=== PATIENT | male | born 1950 | race Caucasian/White ===

== ENCOUNTER 2016-05-04 05:06 | Inpatient (IN) | payer OTHER ==
[2016-03-29 09:34] VITALS: BMI 37.0
--- NOTE | 2016-04-22 17:30 | HISTORY & PHYSICAL EXAMINATION ---
DATE OF ADMISSION: 05/04/2016 CHIEF COMPLAINT: Right knee pain. HISTORY OF PRESENT ILLNESS: 66-year-old gentleman who is now almost a year out from a left knee replacement. He has done well from this side. He is a very avid golfer and now become much more limited by his right knee pain. His left knee is doing well. He has got limited walking tolerance. He has got pain with every step. The more he walks, the more he limps. He would like to have this fixed over the winter months before golf starts. Of note, patient does have multiple comorbidities and recently had a cardiac pacemaker placed. He has been seen by the applied statistician and cleared for surgery. PAST MEDICAL HISTORY: 1. Hypertension. 2. Elevated cholesterol. 3. Hypertrophic cardiomyopathy. 4. Sleep apnea with CPAP machine. 5. Low back pain. 6. Obesity with a BMI of 38. 7. Hiatal hernia. PAST SURGICAL HISTORY: Include knee replacement done 05/09/2015. Right knee scope 2001. ALLERGIES: ATENOLOL. CURRENT MEDICINES: 1. Androderm 2 mg every 24 hours once a day. 2. Niaspan 750 mg 2 pills a day. 3. Nasonex nasal drops p.r.n. 4. Allopurinol 300 mg a day. 5. Lisinopril 10 mg a day. 6. Zetia 10 mg a day. 7. Verapamil ER 180 mg a day. 8. Lovaza 4 capsules a day. 9. Aspirin 81 mg. 10. Aleve p.r.n. SOCIAL HISTORY: A 66-year-old gentleman. Very avid golfer. He is retired. Does not smoke. FAMILY HISTORY: Noncontributory. REVIEW OF SYSTEMS: Negative for diabetes, neurologic problems, vascular problems, bleeding disorders. Denies any chest pain, no shortness of breath. No history of DVT or PE. PHYSICAL EXAMINATION: GENERAL: A pleasant, middle-aged male. He looks to be in pretty decent health. HEENT: Benign. NECK: Supple. No lymphadenopathy. LUNGS: Clear to auscultation. HEART: Regular rate and rhythm. ABDOMEN: Soft, nontender, nondistended. EXTREMITIES: Grossly neurovascularly intact except as follows: Examination of the right knee reveals the patient to have a valgus alignment to his knee. He goes into further valgus with weight bearing. Range of motion about 10 degrees short of full extension to 110 degrees of flexion. No instability. No pain with hip motion. Examination of the left knee reveals a well-healed incision. Minimal swelling. Range of motion is 10 to about 115. X-RAYS: X-rays of the right knee reviewed. It shows advanced right knee DJD. He has got complete loss of his lateral joint space. He has got subchondral sclerosis. He has got multiple osteophytes in all 3 compartments. ASSESSMENT: A 66-year-old gentleman just about a year out from left knee replacement with advanced right knee degenerative joint disease. He has failed conservative treatment and it is really limiting his activities. He does have a significant flexion contracture. PLAN: We are going to take him to the operating room and do a right total knee replacement. The risks and benefits of this procedure were explained to the patient including but not limited to DVT, PE, , infection, neurological injury, vascular injury, bleeding problem, pain, limited range of motion, failure to relive symptoms, incomplete relief of symptoms, need for further surgery in the future, fracture, leg length inequality, nerve palsy, etc. The patient understands and desires to proceed. Informed consent was obtained. Of note, the patient did recently have a cardiac pacemaker placed within the past month but is felt to be cleared for surgery. We did talk about holding his lisinopril the day of surgery and Aleve 10 days preoperatively and will work hard to fix his flexion contracture. He is planning to be discharged to home using [facility] home health model. I will see him back 2 weeks postop. KEVIN
[~2016-05-04] VITALS: Ht 175.3 cm; Wt 116.3 kg
[2016-05-04] VITALS (11 sets, daily range): BP systolic 117–164; BP diastolic 72–88; PULSE 59–75; TEMP 36.4–36.6; O2SAT 91–96; Ht 175.3 cm; Wt 116.3 kg
[~2016-05-04 05:06] MED LIST: ALL300 PO; ASPI81TA28 PO; EZET10TA63 PO; LISI10TA PO; MOME50SP5; NIAC1TAB54 PO; OMEG10007 PO; VERA180T PO
[2016-05-04] MEDS ORDERED: LACTATED RINGER'S 1000ML IV SCH (06:00)
[2016-05-04] MEDS ORDERED: SCOPOLAMINE 1.5 MG TDSY TD SCH (06:00)
[2016-05-04] MEDS ORDERED: GABAPENTIN 300 MG CAP PO SCH (06:00)
[2016-05-04] MEDS ORDERED: METOCLOPRAMIDE HCL 10 MG TAB PO SCH (06:00)
[2016-05-04] MEDS ORDERED: ACETAMINOPHEN 500 MG TAB PO SCH (06:00)
[2016-05-04] MEDS ORDERED: FAMOTIDINE 20 MG TAB PO SCH (06:00)
[2016-05-04] MEDS ORDERED: CEFAZOLIN 2000 MG/60 ML D5W 60 ML IV SCH (06:00)
[2016-05-04] MEDS ORDERED: BUPIVACAINE LIPOSOME 266 MG, BUPIVACAINE/EPINEPHRINE INJ 50 ML, SODIUM CHLORIDE 0.9% PF... INFIL SCH ×3 (06:00)
[2016-05-04] MEDS ORDERED: TRANEXAMIC ACID INJ 1,000 MG in SODIUM CHLORIDE 0.9% 100ML 100 ML IV SCH ×2 (06:00→15:00)
[2016-05-04] MEDS ORDERED: BUPIVACAINE 0.5 % 5 MG/1 ML PF 10ML VIAL ONE (06:28)
[2016-05-04] MEDS ORDERED: BUPIVACAINE 0.25% 30 ML VIAL ONE (06:28)
[2016-05-04] MEDS ORDERED: MIDAZOLAM HCL 1 MG/ML 2ML VIAL ONE (06:36)
[2016-05-04] MEDS ORDERED: FENTANYL CITRATE INJ 50 MCG/1 ML 2 ML VIAL ONE ×3 (06:37→08:43)
[2016-05-04] MEDS ORDERED: BUPIVACAINE LIPOSOME 1/3% 266 MG/20 ML VIAL INFIL ONE (06:46)
--- NOTE | 2016-05-04 06:49 | History & Physical Bridge Note ---
H&P Re-Evaluation Bridge Note: I have examined the patient, reviewed the History & Physical and in the interval since the performance of the History & Physical I have noted the following changes of clinical significance: No changes noted
[2016-05-04] MEDS ORDERED: BACITRACIN 50000 UNIT VIAL IR ONE (07:54)
[2016-05-04] MEDS ORDERED: PROPOFOL IV EMULSION 10 MG/ML 20 ML VIAL IV ONE (07:56)
[2016-05-04] MEDS ORDERED: NEOSTIGMINE METHYLSULFATE 5 MG/5 ML SYR ONE (07:56)
[2016-05-04] MEDS ORDERED: LIDOCAINE HCL 2% 2 ML VIAL (20MG/ML) ONE (07:56)
[2016-05-04] MEDS ORDERED: ETOMIDATE 2 MG/ML 20 ML VIAL IV ONE (07:56)
[2016-05-04] MEDS ORDERED: ONDANSETRON INJ 2 MG/ML 2 ML VIAL ONE (07:56)
[2016-05-04] MEDS ORDERED: SUCCINYLCHOLINE CHLORIDE 20 MG/ML 10 ML VIAL IV ONE (07:56)
[2016-05-04] MEDS ORDERED: ROCURONIUM BROMIDE 10 MG/ML 5 ML VIAL ONE (07:56)
[2016-05-04] MEDS ORDERED: GLYCOPYRROLATE INJ 0.2 MG/ML VIAL ONE (07:57)
[2016-05-04] MEDS ORDERED: ESMOLOL HCL 10 MG/ML 10 ML VIAL ONE (07:57)
[2016-05-04] MEDS ORDERED: DEXAMETHASONE SOD INJ 4 MG/ML VIAL ONE (08:22)
--- NOTE | 2016-05-04 08:49 | [facility] Post Operative Brief Note ---
Immediate Operative Summary Operative Date May 04, 2016. Pre-Operative Diagnosis Right knee degenerative joint disease Chronic Prepatella Bursitis Post-Operative Diagnosis SAME Procedure(s) Performed Right total knee arthroplasty Excision Prepatella Bursa Surgeon Dr. Luiz Gupta Textile Conversion Manager Surgeon(s) Tobias Kirby PA-C Estimated Blood Loss 50cc Findings Severe DJD + Chronic Small Bursitis Fluids (cc crystalloids) 1400 cc Specimens A. Right knee bone and tissue Drains None Anesthesia General Complication(s) None Disposition Recovery Room / PACU
[2016-05-04] MEDS ORDERED: MoRPHine SULFATE 2 MG/ML CARP IV PRN (09:00)
[2016-05-04] MEDS ORDERED: ONDANSETRON INJ 2 MG/ML 2 ML VIAL IV PRN ×2 (09:00→09:15)
[2016-05-04] MEDS ORDERED: SILVER SULFADIAZINE 1% CR 50 GM JAR EXT PRN (09:00)
[2016-05-04] MEDS ORDERED: ALUMINUM/MAGNESIUM/SIMETH (MAALOX MAX) 30 ML UDC PO PRN (09:00)
[2016-05-04] MEDS ORDERED: METOCLOPRAMIDE HCL INJ 5 MG/ML 2 ML VIAL IV PRN (09:00)
[2016-05-04] MEDS ORDERED: ZOLPIDEM TARTRATE 5 MG TAB PO PRN (09:00)
[2016-05-04] MEDS ORDERED: DiphenhydrAMINE HCL 50 MG/ML VIAL IV PRN (09:00)
[2016-05-04] MEDS ORDERED: TAMSULOSIN HCL 0.4 MG CAP PO PRN (09:00)
[2016-05-04] MEDS ORDERED: BISACODYL 10 MG SUPP PR PRN (09:00)
[2016-05-04] MEDS ORDERED: ATROPINE SULFATE 0.1 MG/ML 5ML SYR IV PRN (09:15)
[2016-05-04] MEDS ORDERED: PROMETHAZINE HCL INJ 12.5 MG in SODIUM CHLORIDE 0.9% 50ML 50 ML IV PRN (09:15)
[2016-05-04] MEDS ORDERED: NALOXONE HCL 0.4 MG/1 ML VIAL/CARP IV PRN (09:15)
[2016-05-04] MEDS ORDERED: FLUMAZENIL 0.1 MG/1 ML 10 ML VIAL IV PRN (09:15)
[2016-05-04] MEDS ORDERED: EpHEDrine SULFATE INJ 50 MG/ML AMP IV PRN (09:15)
[2016-05-04] MEDS ORDERED: LABETALOL HCL IV 5 MG/ML 20ML IV PRN (09:15)
[2016-05-04] MEDS ORDERED: HYDROmorphone INJ 1 MG/ML SYR IV PRN (09:15)
--- NOTE | 2016-05-04 09:34 | Anesthesiology Progress Note ---
Anesthesia Post Op Note Date & Time May 04, 2016 at 09:33 Vital Signs Pain Intensity: 0 Vital Signs Past 12 Hours Date Time Temp Pulse Resp B/P Pulse Ox O2 Delivery O2 Flow Rate FiO2 05/04/16 09:23 76 14 05/04/16 09:23 76 14 122/74 95 05/04/16 09:18 74 15 131/83 98 05/04/16 09:18 74 15 05/04/16 09:13 63 16 05/04/16 09:13 73 16 138/79 99 05/04/16 09:08 70 11 129/74 99 05/04/16 09:08 69 14 129/74 100 Mask 10 05/04/16 09:08 71 11 05/04/16 09:03 70 17 05/04/16 09:03 74 17 134/75 98 05/04/16 08:58 37.3 84 14 149/79 96 Mask 10 05/04/16 08:58 70 23 05/04/16 08:58 78 23 145/76 98 05/04/16 06:11 95 Room Air 05/04/16 06:08 36.6 73 18 125/84 Notes Mental Status: alert / awake / arousable, participated in evaluation Pt Amnestic to Procedure: Yes Nausea / Vomiting: adequately controlled Pain: adequately controlled Airway Patency, RR, SpO2: stable & adequate BP & HR: stable & adequate Hydration State: stable & adequate Anesthetic Complications: no major complications apparent
--- NOTE | 2016-05-04 09:34 | OPERATIVE REPORT ---
DATE OF OPERATION: 05/04/2016 SURGEON: Dr. Luiz Gupta. SAILING MASTER: STAN Inman. PREOPERATIVE DIAGNOSIS: 1. Right knee degenerative joint disease. 2. Right chronic prepatellar bursitis. POSTOPERATIVE DIAGNOSIS: Same. PROCEDURE PERFORMED: 1. Right cemented posterior stabilized total knee arthroplasty. 2. Excision of right chronic small prepatellar bursitis. COMPLICATIONS: None. ESTIMATED BLOOD LOSS: 50 mL. FLUID REPLACEMENT: 1400 mL crystalloid fluid replacement. ANESTHESIA: General. SPECIMENS: Right knee sent for pathology. TOURNIQUET TIME: 59 minutes at 300 mmHg. OPERATIVE INDICATIONS: The patient is a 66-year-old very active gentleman and an avid golfer, who has had a long history of bilateral knee pain and degenerative joint disease. He has been through extensive conservative care. He underwent a left knee replacement a year ago and has done well from that. He has become more and more limited by his right knee pain. He has got tricompartment disease and has failed conservative care. He elected to proceed with operative treatment. He had a very stiff knee as well with a flexion contracture of 10-15 degrees. OPERATIVE FINDINGS: Operative findings reveal valgus aligned knee. He had a very stiff knee with the range of motion of about 15-90. He had advanced tricompartmental DJD, most severe in the lateral side, but grade IV changes throughout. OPERATIVE IMPLANTS: Operative implants consisted of: 1. Biomet Vanguard size 70 right posterior stabilized femoral component. 2. Biomet size 79 tibial tray. 3. A 12 mm posterior stabilized polyethylene insert. 4. A 34 x 8.5 all poly patella. OPERATIVE PROCEDURE: The patient was taken to the operating room, identified and placed on the operating room table in a supine position. All contact areas were appropriately padded. IV antibiotics were provided by the anesthesia team. A general anesthetic was implemented. A right thigh tourniquet was then placed and the right lower extremity was then prepped and draped in the usual sterile fashion. The right leg was elevated and exsanguinated with Esmarch and tourniquet was placed at 300 mmHg. An anterior approach to the right knee was then performed through a longitudinal incision centered over the patella. I did make this just medial to his prepatellar bursa area which was about 2 cm, but very small but chronic. His bursa was over a fairly prominent area of his inferior pole of the patella. Sharp dissection was carried out through the subcutaneous tissues. Full thickness flaps were elevated. I then excised the chronic prepatellar bursa area trying to make sure I left plenty of thickness of skin for vascular flow to the skin. I ended up leaving a little bit of the thickened area, as I did not feel it was safe to excise it completely, as I would compromise the skin. This was not sent for pathology. It was a chronic bursitis and no need for pathological examination. A medial parapatellar arthrotomy incision was made. Some subperiosteal dissection was carried out medially. The fat pad was resected from beneath the patellar tendon. The lateral patellofemoral ligament was released. The patella was everted and the knee was flexed. The osteophytes were taken off the distal femur. The ACL and PCL were then released from the distal femur and the tibia subluxated anteriorly. The external tibial alignment jig was then placed in the anterior face of the tibia and adjusted about 14 mm medially. A proximal tibial cut was made to remove about 4 mm of bone from the medial side. I took a fairly large piece, as he had a significant flexion contracture and I wanted to make sure we could fix this. The tibia was then sized to a size 79. Attention was then drawn to the femur. The distal femur was entered with a sharp drill. The intramedullary canal was suctioned. A right 5 degree valgus cutting guide was placed and the distal femoral cutting block was pinned in place. Distal femoral cut was made to take an additional 5 mm of bone off the distal femur due to do this flexion contracture and desire to fix this. The knee was brought out into extension. I did release the IT band and posterolateral capsule to equalize the extension gap. Great care was taken throughout the procedure to protect the peroneal nerve at all times. The knee was then flexed. The femur was then sized to a size 70. The AP cutting block was pinned parallel to the epicondylar axis, which was 5 degrees of external rotation. The anterior cut, anterior chamfer cut and posterior cut, and posterior chamfer cuts were made. Box cutting guide was placed and adjusted slightly lateral and the box cut was made. The knee was flexed. The remnants of the medial and lateral menisci were excised. The osteophytes were taken off the posterior aspect of the femur. I did release the popliteus tendon in order to equalize the flexion gaps. The knee was then trialed. The femoral component was then placed. The tibial tray was pinned in maximum external rotation and drill and stem punch were used to create defect in proximal tibia for the tibial tray. The knee was then trialed and the 12 mm insert fit most appropriately. Attention was then drawn to the patella. The patella was cleaned of all soft tissues. Patella thickness measured 23 mm in thickness and was cut down to 14. It was sized to a size 34 patella. Lug holes were drilled for a 34 patella. The lateral osteophyte was removed. Patella button was placed. The knee was taken through range of motion and the patella tracked nicely with no thumbs test. Attention was then drawn toward placement of the permanent components. All trial components were removed. The knee was irrigated with copious amounts of pulsatile lavage solution. A bone plug was placed in the distal femur to limit blood loss. A double batch of Palacos G cement was mixed. A right size 70 posterior stabilized femoral component, size 79 tibial tray, 12 mm posterior stabilized polyethylene insert, and a 34 x 8.5 all poly patella were then cemented in place. The knee was brought out into full extension until the cement had hardened. When placing the polyethylene, the clip did not really snap like it normally did, so we wait until the cement hardened. A final cement check was then performed. I then removed the locking pin and replaced it with an entire new pin which locked into position with a standard snap. The knee was taken through range of motion and everything tracked appropriately. Everything was well fixed and stable. The patella tracked well with no thumbs test. Attention was then drawn toward closing. The wound was irrigated with copious amounts of normal saline. I injected locally with a total of 100 mL of a combination of 20 mL of Exparel, 30 mL of normal saline, 50 mL of 0.25% Marcaine with epinephrine. The patient did receive 1 gram of tranexamic acid. The tourniquet was then let down for a tourniquet time of 59 minutes. Hemostasis was assured with use of electrocautery. The wound was once again irrigated. The extensor mechanism was then closed with a combination of #1 PDS suture and #1 Vicryl suture in a [id number] fashion. Extensor mechanism was checked and found to be intact. The subcutaneous tissues were then closed with 2-0 Dexon suture in a buried interrupted fashion. Skin was closed skin zafar. The leg was then cleaned and dried and a sterile dressing composed of Xeroform, 4 x 4, sterile cast padding and Andrew bandage were applied. The patient then brought out of general anesthesia and transferred to the recovery room in stable condition. The patient tolerated the procedure well with no complications. All needle and sponge counts were correct at the end of the operation. I attest to the content of the Intraoperative Record and any orders documented therein. Any exceptio ns are noted below.
--- NOTE | 2016-05-04 09:49 | DIAGNOSTIC IMAGING REPORT ---
TWO VIEWS RIGHT KNEE CLINICAL HISTORY: Postoperative examination. FINDINGS: AP and crosstable lateral portable views of the right knee are obtained. A right knee arthroplasty is in near anatomic alignment. There has been undersurface remodeling of the patella. No acute fracture is seen. There are expected postoperative changes around the knee including skin clips, a surgical drain, soft tissue edema, and subcutaneous gas. IMPRESSION: Expected postoperative changes status post right knee arthroplasty. No acute fracture is seen. Electronically signed by: Daryl Parry M.D. 05/04/2016 9:48 AM Dictated Date/Time: 05/04/2016 9:47 AM
[2016-05-04] MEDS: D5W AND 1/2NSS + 20MEQ KCL 1,000 ML IV SCH ×2 (10:53→16:25)
[2016-05-04] MEDS ORDERED: KETOROLAC TROMETHAMINE 30 MG/ML VIAL IV. SCH ×2 (12:00)
[2016-05-04] MEDS: FERROUS GLUCONATE 324 MG TAB PO SCH ×2 (12:34→17:31)
[2016-05-04] MEDS: LISINOPRIL 10 MG TAB PO SCH (12:34)
[2016-05-04] MEDS: MULTIVITAMIN TAB PO SCH (12:35)
[2016-05-04] MEDS: PANTOprazole SOD 40 MG TAB PO SCH (12:35)
[2016-05-04] MEDS: KETOROLAC TROMETHAMINE 15 MG/ML VIAL IV. SCH ×3 (12:36→23:50)
[2016-05-04] MEDS: CEFAZOLIN IV 2,000 MG in DEXTROSE 5% 50ML 50 ML IV SCH ×2 (13:40→22:05)
[2016-05-04] MEDS: ACETAMINOPHEN 500 MG TAB PO SCH ×2 (13:40→22:05)
--- NOTE | 2016-05-04 15:36 | CARDIOLOGY CONSULTATION ---
DATE OF CONSULTATION: 05/04/2016 REFERRING PHYSICIAN: Dr. Gupta. REASON FOR CONSULTATION: Postop cardiac care. HISTORY OF PRESENT ILLNESS: The patient is a 66-year-old male who is usually followed by Dr. Eduardo through the [facility]. He has a history of hypertrophic obstructive cardiomyopathy, hypertension, sleep apnea, and recently received a dual-chamber ICD with a history of ventricular ectopy and Bivesicular heart block. The patient underwent a right total knee replacement today. The procedure was noncomplicated and the patient is fully awake and has already finished lunch. He has no complaints today. ALLERGIES: ATENOLOL. PAST MEDICAL HISTORY: As outlined above, the patient has a history of hypertrophic obstructive cardiomyopathy. He received a dual-chamber ICD in March of last year. He has been treated for hypertension, dyslipidemia and sleep apnea. SOCIAL HISTORY: He is a nonsmoker. FAMILY MEDICAL HISTORY: Noncontributory. REVIEW OF SYSTEMS: A 10-point review of systems is negative except for the history of chief complaint. PHYSICAL EXAMINATION: GENERAL: He is alert and oriented in no acute distress. VITAL SIGNS: Blood pressure is 130/80 and pulse is regular at 70 beats per minute. He is afebrile. HEENT: Normocephalic. Pupils are equal and reactive to light. Extraocular muscles are intact bilaterally. NECK: The neck veins are flat. Carotids have good upstrokes bilaterally without bruits. Thyroid is nonpalpable. RESPIRATORY: Breath sounds equal bilaterally and clear to auscultation. CARDIOVASCULAR: Heart has a regular rhythm. There is a systolic murmur along the left sternal border. No S3 or S4. GASTROINTESTINAL: Abdomen is soft and nontender without organomegaly. EXTREMITIES: Free of edema, digit clubbing, or cyanosis. NEUROLOGIC: Grossly intact. SKIN: Warm to touch. LYMPH NODES: Negative to palpation. IMPRESSION: 1. Status post right total knee replacement. 2. Hypertrophic cardiomyopathy with outflow tract obstruction. 3. Status post dual-chamber ICD. 4. Hypertension. 5. Dyslipidemia. 6. Sleep apnea. RECOMMENDATIONS: We will follow along with you during his hospital stay. We want to make sure that he is on his home medications and that he does not become volume overloaded with IV fluid. Otherwise, he is doing well.
[2016-05-04] MEDS: CHECK SCOPOLAMINE PATCH PLACEMENT SCH ×2 (16:25→23:50)
[2016-05-04] MEDS: VERAPAMIL HCL 180 MG TABCR PO SCH (21:00)
[2016-05-04] MEDS: TAPENTADOL ER 50 MG TABCR PO SCH (21:00)
[2016-05-04] MEDS: FLUTICASONE PROPIONATE NA SPR 16 GM BTL SCH (21:00)
[2016-05-04] MEDS: ALLOPURINOL 300 MG TAB PO SCH (21:01)
[2016-05-04] MEDS: ASPIRIN 325 MG ECTAB PO SCH (21:01)
[2016-05-04] MEDS: NIASPAN 500 MG TABCR PO SCH (21:01)
[2016-05-04] MEDS: EZETIMIBE 10MG TAB PO SCH (21:02)
[2016-05-04] MEDS: DOCUSATE SODIUM 100 MG CAP PO SCH (21:02)
[2016-05-05 03:46] VITALS: BP 113/73; PULSE 81; TEMP 36.6; O2SAT 95
[2016-05-05] MEDS: KETOROLAC TROMETHAMINE 15 MG/ML VIAL IV. SCH ×4 (05:59→23:27)
[2016-05-05] MEDS: ACETAMINOPHEN 500 MG TAB PO SCH ×3 (05:59→22:11)
[2016-05-05 06:28] LABS: HEMATOCRIT 38.2 % (42-52); MEAN CELL VOLUME 88.8 fL (80-100); MEAN CORPUSCULAR HEMOGLOBIN 31.6 pg (25-34); MEAN CORPUSCULAR HGB CONC 35.6 g/dl (32-36); MEAN PLATELET VOLUME 9.5 fL (7.4-10.4); PLATELET COUNT 175 K/uL (130-400); WHITE BLOOD COUNT 11.28 K/uL (4.8-10.8)
[2016-05-05 06:55] LABS: CALCIUM 9.1 mg/dl (8.5-10.1); CREATININE 1.4 mg/dl (0.60-1.40); POTASSIUM 4.5 mmol/L (3.5-5.1)
[2016-05-05] MEDS: CHECK SCOPOLAMINE PATCH PLACEMENT SCH ×3 (07:29→23:26)
[2016-05-05 07:30] VITALS: BP 106/70; PULSE 78; TEMP 36.5; O2SAT 91
[2016-05-05] MEDS: MULTIVITAMIN TAB PO SCH (08:21)
[2016-05-05] MEDS: DOCUSATE SODIUM 100 MG CAP PO SCH ×2 (08:21→21:03)
[2016-05-05] MEDS: ASPIRIN 325 MG ECTAB PO SCH ×2 (08:21→21:03)
[2016-05-05] MEDS: FERROUS GLUCONATE 324 MG TAB PO SCH ×3 (08:21→18:01)
[2016-05-05] MEDS: PANTOprazole SOD 40 MG TAB PO SCH (08:21)
[2016-05-05] MEDS: LISINOPRIL 10 MG TAB PO SCH (08:22)
[2016-05-05] MEDS: TAPENTADOL ER 50 MG TABCR PO SCH ×2 (08:24→21:02)
--- NOTE | 2016-05-05 10:35 | Anesthesiology Progress Note ---
Anesthesia Post Op Note Date & Time May 05, 2016 at 10:34 Vital Signs Pain Intensity: 0.0 Vital Signs Past 12 Hours Date Time Temp Pulse Resp B/P Pulse Ox O2 Delivery O2 Flow Rate FiO2 05/05/16 07:30 36.5 78 16 106/70 91 Room Air 05/05/16 07:15 Room Air 05/05/16 03:46 36.6 81 18 113/73 95 CPAP 05/04/16 23:50 Room Air 05/04/16 22:51 36.6 69 20 119/76 93 Room Air Notes Mental Status: alert / awake / arousable, participated in evaluation Pt Amnestic to Procedure: Yes Nausea / Vomiting: adequately controlled Pain: adequately controlled Airway Patency, RR, SpO2: stable & adequate BP & HR: stable & adequate Hydration State: stable & adequate Anesthetic Complications: no major complications apparent
[2016-05-05 10:59] VITALS: BP 105/65; PULSE 68; TEMP 36.9; O2SAT 95
--- NOTE | 2016-05-05 11:12 | PROGRESS NOTE ---
DATE: 05/05/2016 FOLLOWUP VISIT SUBJECTIVE: The patient is a 66-year-old male patient with a history of hypertrophic cardiomyopathy and ICD implant who underwent a total knee replacement yesterday. The patient is sitting in the chair and has no complaints. Physical therapy and rehabilitation are progressing along. He has no complaints today. OBJECTIVE: VITAL SIGNS: Blood pressure is 110/70, pulse is regular at 80. He is afebrile. GENERAL: He is alert and oriented in no acute distress. HEENT: Normocephalic. Pupils are equal and reactive to light. Extraocular muscles are intact bilaterally. NECK: The neck veins are flat. Carotids have good upstrokes bilaterally without bruits. Thyroid is nonpalpable. RESPIRATORY: Breath sounds equal bilaterally and clear to auscultation. CARDIOVASCULAR: Heart has a regular rhythm. Normal S1, S2. No S3, S4. No cardiac rubs or murmurs. GASTROINTESTINAL: Abdomen is soft, nontender without organomegaly. EXTREMITIES: Free of edema, digit clubbing, or cyanosis. NEUROLOGIC: Grossly intact. SKIN: Warm to touch. LYMPH NODES: Negative to palpation. IMPRESSION: 1. Status post right total knee replacement. 2. Hypertrophic cardiomyopathy with outflow tract obstruction. 3. Status post dual chamber implantable cardioverter defibrillator. 4. Hypertension. 5. Dyslipidemia. 6. Sleep apnea. RECOMMENDATIONS: Clinically, the patient remains stable and is progressing with his rehabilitation post-knee replacement.
[2016-05-05] MEDS ORDERED: MORP15TA19 PO (14:27)
[2016-05-05] MEDS ORDERED: OXYC-57 PO (14:27)
[2016-05-05] MEDS ORDERED: ASPEC325 PO (14:27)
--- NOTE | 2016-05-05 14:29 | Discharge Instructions ---
Discharge Instructions Admission Reason for Admission: Right Knee Degenerative Joint Disease Discharge Discharge Diagnosis / Problem: Right Knee Replacement Discharge Goals Goal(s): Decrease discomfort, Improve function, Increase independence, Improve disease control, Therapeutic intervention Activity Recommendations Activity Limitations: per Instructions/Follow-up section Weightbearing Status: Right weightbearing . Instructions / Follow-Up Instructions / Follow-Up ACTIVITY RECOMMENDATIONS: Physical Therapy: * You will go to physical therapy three times each week for four to six weeks after your surgery in order to regain your knee range of motion and to retrain your knee to work properly. * It is just as important to make sure you are getting your knee perfectly straight as it is to regain your knee bend. * Taking a pain pill an hour before therapy can help you have a more productive and comfortable therapy session. Home Exercise: * You were shown a series of exercises (heel props, heel slides, etc.) in the hospital. Do these exercises three to four times each day including the exercises you were shown in physical therapy. Walking: * Get up and walk several times each day. For the first four weeks, try not to stand or walk for more than one hour at a time. If you do stand or walk for more than one hour, you will not hurt anything, but your knee and leg will likely swell. * As you feel comfortable, you may change from the walker or crutches to a cane and then to independent walking. MEDICATIONS: New Medicine: * You will likely be taking one or more of these medications: 1. MS Contin - A long-acting pain medication. Take 1 tablet twice a day for the first ten days to decrease your baseline level of pain. 2. Percocet - A quick and shorter-acting pain medication. Take one to two tablets every four to six hours to lessen your pain. 3. Aspirin - Thins your blood to lessen the chance of forming a blood clot. * The most common side effects of pain medicine and iron are nausea and constipation. If nausea or constipation is too much of a problem or if you have any questions about your new medicines or doses, call [facility] at . We will try to help you manage these issues. VERY IMPORTANT TO READ AND REVIEW" Pain: * The immediate post-operative period after knee replacement surgery is often quite painful. * You are given a prescription for pain medicine. You should take it, as directed, when you need it, especially before physical therapy and before going to bed. Pain that interferes with sleep is very common and can last several months. * You will likely need pain medicine for the first four to six weeks. It will not stop all of the pain. The pain will lessen and as you feel better, you may change to milder pain medicine such as Tylenol. * The most common side effects of pain medicine are nausea and constipation, so don't take more than you need. SPECIAL CARE INSTRUCTIONS: TEDs/Elastic Stockings: * The white elastic stockings help limit swelling and prevent blood clots from forming in your legs. The more you wear them, the more they work. * Wear them for six weeks after knee replacement surgery and four weeks after partial knee replacement. Prevention of Infection: * Take antibiotics one hour before any dental cleaning, dental work, urological procedure, gastrointestinal procedure or any invasive surgery in order to prevent your new joint from getting infected. * You may get the antibiotics from the doctor performing the procedure or you may call our office at before and we will call in a prescription to the pharmacy of your choice. Things to Watch For: * Drainage from the incision site that occurs more than one week after your surgery. * Severely increased knee/leg pain or swelling. * Increased redness at the incision site. * Fever above 102 degrees Fahrenheit. * Unusual chest pain or shortness of breath. * Unusual pain or burning with urination. Call [facility] at with any of the above problems or if you have any questions about your medicines or recovery. FOLLOW UP VISIT: Make an appointment to see your doctor for approximately two weeks after surgery for a progress check and staple removal by calling the office at . Current Hospital Diet Patient's current hospital diet: Regular Diet Discharge Diet Recommended Diet: Regular Diet Procedures Procedures Performed: Right total knee arthroplasty Excision Prepatella Bursa Pending Studies Studies pending at discharge: no Medical Emergencies . Who to Call and When: Medical Emergencies: If at any time you feel your situation is an emergency, please call [phone] immediately. . Non-Emergent Contact Non-Emergency issues call your: Surgeon . "Provider Documentation" section prepared by Luiz Gupta. VTE Core Measure Inpt VTE Proph given/why not?: Other Anticoagulation, T.E.D. Stockings, SCD's
--- NOTE | 2016-05-05 14:50 | PROGRESS NOTE ---
DATE: 05/05/2016 DATE: 05/05/2016. SUBJECTIVE: A 66-year-old gentleman postop day 1 from right knee replacement. He is doing well. Pain has done very well controlled. Seems better than his previous knee surgery pain. No chest pain or shortness of breath. Not feeling dizzy or lightheaded. OBJECTIVE: VITAL SIGNS: Temperature is 36.9. Vital signs stable. PHYSICAL EXAMINATION: GENERAL: Reveals a healthy, pleasant, middle-aged male. He is sitting up in her bedside chair reading and looks comfortable. LUNGS: Clear to auscultation. HEART: Regular rate and rhythm. ABDOMEN: Soft, nontender, nondistended. EXTREMITY EXAMINATION: Grossly neurovascularly intact except as follows: Examination of the right lower extremity reveals the leg to be well aligned. Dressing is clean dressing is clean, dry, and intact. He is neurologically intact. LABORATORY DATA: Hemoglobin 13.6. Hematocrit 38.2. White cell count 11.28. Electrolytes are stable. ASSESSMENT: A 66-year-old gentleman postop day 1 from right knee replacement, doing well. Pain is controlled. PLAN: 1. DVT prophylaxis including thigh-high TEDs, SCDs, and aspirin twice a day. 2. PT/OT. Weightbearing as tolerated. Right total knee protocol. 3. Pain control. Doing well with current pain regimen. 4. Disposition: Plan to discharge to home with some home health once adequately recovered.
[2016-05-05 15:07] VITALS: BP 116/73; PULSE 67; TEMP 36.7; O2SAT 96
[2016-05-05] MEDS: OXYCODONE HCL IR 5 MG TAB (IMMEDIATE RELEASE) PO PRN (18:36)
[2016-05-05] MEDS: FLUTICASONE PROPIONATE NA SPR 16 GM BTL SCH (21:02)
[2016-05-05] MEDS: VERAPAMIL HCL 180 MG TABCR PO SCH (21:02)
[2016-05-05] MEDS: EZETIMIBE 10MG TAB PO SCH (21:03)
[2016-05-05] MEDS: ALLOPURINOL 300 MG TAB PO SCH (21:04)
[2016-05-05] MEDS: NIASPAN 500 MG TABCR PO SCH (21:04)
[2016-05-05 23:34] VITALS: BP 130/82; PULSE 68; TEMP 36.7; O2SAT 94
[2016-05-06] MEDS: KETOROLAC TROMETHAMINE 15 MG/ML VIAL IV. SCH (05:36)
[2016-05-06] MEDS: ACETAMINOPHEN 500 MG TAB PO SCH (05:37)
[2016-05-06 07:21] VITALS: BP 114/68; PULSE 67; TEMP 36.7; O2SAT 92
--- NOTE | 2016-05-06 07:46 | PROGRESS NOTE ---
DATE: 05/06/2016 DATE: 05/06/2016. SUBJECTIVE: A 66-year-old gentleman postop day 2 from right knee replacement. He is doing pretty well. A bit more pain last night, but doing better this morning. No chest pain or shortness of breath. Not feeling dizzy or lightheaded. OBJECTIVE: VITAL SIGNS: Temperature 36.7. Vital signs stable. PHYSICAL EXAMINATION: GENERAL: Reveals a healthy, pleasant, middle-aged male. He is sitting up in her bedside chair and looks comfortable. LUNGS: Clear to auscultation. HEART: Has a regular rate and rhythm. ABDOMEN: Soft, nontender, nondistended. EXTREMITY EXAMINATION: Grossly neurovascularly intact except as follows: Examination of the right lower extremity reveals the dressing to be clean, dry, and intact. He can dorsiflex and plantarflex his foot appropriately. He is neurologically intact. ASSESSMENT: A 66-year-old gentleman postop day 2 from a right knee replacement, doing well. Pain is controlled. PLAN: 1. DVT prophylaxis including thigh-high TEDs, SCDs, and aspirin twice a day. 2. PT/OT. Weightbearing as tolerated. Right total knee protocol. 3. Pain control. Doing pretty well with current pain regimen. 4. Disposition. Plan to discharge to home with some home health after therapy today.
[2016-05-06] MEDS: CHECK SCOPOLAMINE PATCH PLACEMENT SCH (08:10)
[2016-05-06] MEDS: FERROUS GLUCONATE 324 MG TAB PO SCH (08:10)
[2016-05-06] MEDS: ASPIRIN 325 MG ECTAB PO SCH (08:10)
[2016-05-06] MEDS: DOCUSATE SODIUM 100 MG CAP PO SCH (08:10)
[2016-05-06] MEDS: PANTOprazole SOD 40 MG TAB PO SCH (08:10)
[2016-05-06] MEDS: MULTIVITAMIN TAB PO SCH (08:10)
[2016-05-06] MEDS: TAPENTADOL ER 50 MG TABCR PO SCH (08:11)
[2016-05-06] MEDS: LISINOPRIL 10 MG TAB PO SCH (08:11)
[2016-05-06 08:42] VITALS: BP 114/68; PULSE 67; TEMP 36.7; O2SAT 92
[2016-05-06] MEDS: OXYCODONE HCL IR 5 MG TAB (IMMEDIATE RELEASE) PO PRN ×2 (10:37→10:47)
--- NOTE | 2016-05-13 15:15 | DISCHARGE SUMMARY ---
ADMITTING PHYSICIAN AND SURGEON: Dr. Gupta. ADMITTING DIAGNOSES: 1. Right knee degenerative joint disease. 2. Right chronic prepatellar bursitis. PROCEDURE PERFORMED: 1. Right total knee arthroplasty. 2. Excision of right chronic prepatellar bursitis. SECONDARY DIAGNOSES: Include hypertension, elevated cholesterol, hypertrophic cardiomyopathy, sleep apnea, low back pain, obesity, hiatal hernia. CONSULTS: Dr. Antony Eduardo, postoperative cardiac care. HISTORY AND PHYSICAL EXAMINATION: Well documented in the patient's chart. HOSPITAL COURSE: The patient was admitted on 05/04/2016 underwent total knee arthroplasty. He tolerated the procedure well. There were no complications. He was transferred to the PACU postoperatively and later to the orthopedic floor for further care. He was given Ancef for antibiotic prophylaxis, KRISTEN stockings, SCDs and aspirin for DVT prophylaxis. Hemoglobin, hematocrit and vital signs were monitored during his hospital stay and remained stable. He did not require any blood transfusions. There were no complications during his hospital stay. He was followed by the cardiology service throughout his hospital stay as well. By postoperative day 2, he was tolerating a general diet. Pain was controlled with oral pain medicine. He was participating in physical therapy and had no signs or symptoms of deep vein thrombosis. On postop day 2, he was discharged home in good condition, set up with home health services, given printed discharge instructions and prescriptions for aspirin 325 mg b.i.d., MS Sharmaine and Lynnet. Continue his home medicines with the exception of his home dose of aspirin which was changed. Continue physical therapy, weightbearing as tolerated. KRISTEN stockings. Follow up in 10-12 days or sooner if there are any problems or concerns.
[2016-06-03] MEDS ORDERED: CPR500 PO (12:14)
[2016-06-03] MEDS ORDERED: FLM4 PO (12:14)
[2016-06-03] MEDS ORDERED: LCTX PO (12:14)
[2016-06-03] MEDS ORDERED: PHEN-1043 PO (12:15)
[2016-06-03] MEDS ORDERED: ULT50X PO (16:20)
[2016-06-14] MEDS ORDERED: TRAM-10 PO (11:30)
[2016-06-14] MEDS ORDERED: PROB1TAB16 PO (11:30)
[2016-06-14] MEDS ORDERED: PHEN-876 PO (11:30)
[2016-06-14] MEDS ORDERED: TAMS0.4C38 PO (11:30)
[2016-06-18] MEDS ORDERED: HYDR-5688 PO (07:17)
[2016-07-12] MEDS ORDERED: PHEN-876 PO (13:24)
[2016-07-12] MEDS ORDERED: CIPR-255 PO (13:24)
[2016-07-12] MEDS ORDERED: HYDR-5688 PO (13:24)
== END 2016-05-06 12:45 | disposition home health service (06) | DRG 470 ==
LOC: ENRESERVTM → ENRESERVDT → C.ACU 05:06 → C.3E 06:38
PROVIDERS: ADMIT Orthopaedic Surgery Sports Medicine; ATTEND Orthopaedic Surgery Sports Medicine
PROC: 0SRC0J9 Replacement of Right Knee Joint with Synthetic Substitute, Cemented, Open Approach (ICD-10-PCS; principal; 2016-05-04 07:00)
DX: M17.11 Unilateral primary osteoarthritis, right knee (principal); I42.1 Obstructive hypertrophic cardiomyopathy; M24.561 Contracture, right knee; M70.41 Prepatellar bursitis, right knee; I12.9 Hypertensive chronic kidney disease with stage 1 through stage 4 chronic kidney disease, or unspecified chronic kidney disease; E11.22 Type 2 diabetes mellitus with diabetic chronic kidney disease; N18.9 Chronic kidney disease, unspecified; I35.0 Nonrheumatic aortic (valve) stenosis; E78.00 Pure hypercholesterolemia, unspecified; E78.5 Hyperlipidemia, unspecified; G47.30 Sleep apnea, unspecified; M54.5 Low back pain; M10.9 Gout, unspecified; E66.9 Obesity, unspecified; Z68.38 Body mass index [BMI] 38.0-38.9, adult; Z99.89 Dependence on other enabling machines and devices; Z95.0 Presence of cardiac pacemaker; Z96.652 Presence of left artificial knee joint; Z87.891 Personal history of nicotine dependence; Z79.82 Long term (current) use of aspirin; Z79.899 Other long term (current) drug therapy

== ENCOUNTER → 2016-05-16 | Outpatient (CLI) | payer OTHER ==
[~2016-05-16] MED LIST changes: +ACET-1256 PO; +ASPEC325 PO; +CIPR-255 PO; +CPR500 PO; +DOCU100C PO; +FLM4 PO; +HYDR-5688 PO; +IRON PO; +LCTX PO; +LISI-729 PO; +MOME6000 NAE; +MORP15TA19 PO; +OXYC-57 PO; +PHEN-1043 PO; +PHEN-876 PO; +PROB1TAB16 PO; +TAMS0.4C38 PO; +TRAM-10 PO; +ULT50X PO
--- NOTE | 2016-05-16 09:58 | DIAGNOSTIC IMAGING REPORT ---
ULTRASOUND VENOUS DOPPLER LWR EXT BILA CLINICAL HISTORY: BILATERAL LEG PAIN, SWELLING COMPARISON STUDY: No previous studies for comparison. FINDINGS: Real-time and color flow Doppler imaging were performed. Flow was seen within the femoral, popliteal and calf veins with no intraluminal thrombus demonstrated. The saphenous vein is patent. There is a complex fluid collection in the posterior right calf measuring 21 x 34 x 71 mm. This may represent a hematoma or complex popliteal cyst. IMPRESSION: 1. No evidence of lower extremity DVT 2. Large complex fluid collection within the posterior proximal to mid right calf measuring 21 x 34 x 71 mm Electronically signed by: Guido Tenorio M.D. 05/16/2016 9:56 AM Dictated Date/Time: 05/16/2016 9:54 AM
--- NOTE | 2016-05-21 06:51 | CODING QUERY MEDICAL NECESSITY ---
SUPPORTING DIAGNOSIS NEEDED Dr. Gupta, A supporting diagnosis is required for the test/procedure performed on this patient in order for us to be reimbursed by the patient's insurance. Please provide a supporting diagnosis for the following test/procedure listed below next to the test name along with your signature. *If there is no additional diagnosis for this patient that would support the following test/procedure please document that below next to the test/procedure. Test(s)/Procedure(s) that require a supporting diagnosis: * ([id number]) VENOUS DOPPLER LOWER EXT BILAT DIAGNOSIS: DATE OF SERVICE: 05/16/16 Provider Signature: Date: Thank you Mitch Cross [facility] Information Management Once completed, please kindly fax back to [phone] For questions please call [phone]
== END | disposition home or self-care (01) ==
LOC: C.ULTR 08:51
PROVIDERS: ATTEND Orthopaedic Surgery Sports Medicine
DX: M79.89 Other specified soft tissue disorders (principal); M79.606 Pain in leg, unspecified

== ENCOUNTER 2016-05-31 18:26 | Inpatient (IN) | payer OTHER ==
[~2016-05-31] VITALS: Ht 175.3 cm; Wt 119.4 kg
[~2016-05-31 18:26] MED LIST changes: -ACET-1256 PO; -ASPI81TA28 PO; -CIPR-255 PO; -CPR500 PO; -DOCU100C PO; -FLM4 PO; -HYDR-5688 PO; -IRON PO; -LCTX PO; -LISI-729 PO; -MOME6000 NAE; -MORP15TA19 PO; -PHEN-1043 PO; -PHEN-876 PO; -PROB1TAB16 PO; -TAMS0.4C38 PO; -TRAM-10 PO; -ULT50X PO
[2016-05-31] MEDS ORDERED: SODIUM CHLORIDE 0.9% 1000ML 1,000 ML IV STA ×4 (18:39→20:01)
[2016-05-31] MEDS ORDERED: DAPTOmycin IV 500 MG in SODIUM CHLORIDE 0.9% 50ML 50 ML IV STA (18:39)
[2016-05-31] MEDS ORDERED: PIPERACILLIN/TAZOBACTAM 4.5 GM/100ML D5W IV STA (18:39)
[2016-05-31] MEDS ORDERED: ACETAMINOPHEN 500 MG TAB PO STA (18:39)
[2016-05-31] MEDS ORDERED: ONDANSETRON INJ 2 MG/ML 2 ML VIAL IV STA (18:39)
[2016-05-31 19:01] LABS: HEMATOCRIT 35.7 % (42-52); MEAN CELL VOLUME 88.8 fL (80-100); MEAN CORPUSCULAR HEMOGLOBIN 31.3 pg (25-34); MEAN CORPUSCULAR HGB CONC 35.3 g/dl (32-36); MEAN PLATELET VOLUME 9.6 fL (7.4-10.4); PLATELET COUNT 179 K/uL (130-400); RED BLOOD COUNT 4.02 M/uL (4.7-6.1); WHITE BLOOD COUNT 6.59 K/uL (4.8-10.8)
--- NOTE | 2016-05-31 19:01 | DIAGNOSTIC IMAGING REPORT ---
CHEST ONE VIEW PORTABLE CLINICAL HISTORY: Weakness COMPARISON STUDY: 04/07/2016 FINDINGS: The heart is the upper limits of normal in size. There is a left subclavian pacer/defibrillator present. There is no failure. There is no focal pulmonary consolidation. There are no pleural effusions.[ IMPRESSION: No active disease in the chest. Electronically signed by: Guido Tenorio M.D. 05/31/2016 6:59 PM Dictated Date/Time: 05/31/2016 6:59 PM
[2016-05-31 19:12] LABS: INR 1.1 (0.9-1.1); PARTIAL THROMBOPLASTIN RATIO 1.4; PROTHROMBIN TIME (PATIENT) 11.5 SECONDS (9.0-12.0)
[2016-05-31 19:18] LABS: BUN/CREATININE RATIO 22.5 (10-20); CALCIUM 8.7 mg/dl (8.5-10.1); CREATININE 1.7 mg/dl (0.60-1.40); MAGNESIUM 1.8 mg/dl (1.8-2.4); POTASSIUM 3.9 mmol/L (3.5-5.1)
[2016-05-31 19:33] LABS: URINE APPEARANCE TURBID (CLEAR); URINE BILIRUBIN NEG (NEG); URINE COLOR YELLOW; URINE EPITHELIAL CELL AUTO >30 /lpf (0-5); URINE NITRITE POS (NEG); UROBILINOGEN NEG (NEG)
[2016-05-31 19:34] LABS: MANUAL MICROSCOPIC REQUIRED? NO; REVIEW REQ? YES
[2016-05-31 19:47] LABS: BASO % 0.2 %; BASO ABS # 0.01 K/uL (0-0.2); COMPLETE YES; IG% 0.5 %; LYMPH % 6.1 %; MONO % 7.1 %; NEUT % 86.1 %
[2016-05-31 19:48] LABS: URINE PATH CASTS 5-10 GRANULAR CASTS /lpf (0)
[2016-05-31 19:49] LABS: THYROID STIMULATING HORMONE 1.52 uIu/ml (0.300-4.500)
--- NOTE | 2016-05-31 20:04 | DIAGNOSTIC IMAGING REPORT ---
CT SCAN OF THE ABDOMEN AND PELVIS WITHOUT CONTRAST CLINICAL HISTORY: Right flank pain and painful urination COMPARISON STUDY: No previous studies for comparison. TECHNIQUE: CT scan of the abdomen and pelvis was performed from the lung bases to the proximal femurs. Images are reviewed in the axial, sagittal, and coronal planes. IV contrast was not administered for this examination. CT DOSE: 1788.55 mGy.cm FINDINGS: Lower chest: There are coronary artery calcifications present. Liver: There is mild hepatic steatosis. No focal masses are visualized. Gallbladder: Unremarkable. Spleen: Normal in size and attenuation. Pancreas: The pancreas is atrophic. No masses are visualized. Adrenal glands: Unremarkable. Kidneys: No renal calculi are visualized. There is marked right-sided hydronephrosis. There are 3 proximal right ureteral calculi, the largest of which measures 16 mm x 7 x 7 mm there is right-sided perinephric stranding. There is right-sided periureteral edema Bowel: There are no transition zones indicate bowel obstruction. There is no evidence of acute diverticulitis. Peritoneum: There is no intraperitoneal free air or abdominal ascites. There are small fat-containing inguinal hernias. Vasculature: The abdominal aorta is normal in course and caliber. Adenopathy: None. Pelvic viscera: There is residual a Chandra catheter. There is air within the bladder likely iatrogenic. Skeletal structures: No destructive osseous lesions are seen. IMPRESSION: 1. Severe right-sided hydronephrosis and hydroureter secondary to 3 obstructing proximal right ureteral calculi, the largest of which measures 16 x 7 x 7 mm. These are located the L4-5 level. 2. No evidence of bowel obstruction. No evidence of free air Electronically signed by: Guido Tenorio M.D. 05/31/2016 8:03 PM Dictated Date/Time: 05/31/2016 7:57 PM
[2016-05-31] MEDS ORDERED: MOME6000 NAE (20:37)
[2016-05-31] MEDS ORDERED: ACET-1256 PO (20:52)
[2016-05-31] MEDS ORDERED: IRON PO (20:52)
--- NOTE | 2016-05-31 21:04 | Urology Consultation ---
History General Date of Service: May 31, 2016. Primary Care Physician: Joni Santiago M.D. (MEDICAL) Pt seen a urologist before?: No History of Present Illness 66y/o male with sudden onset right flank pain and general ill feeling starting 72 hrs ago - progressed over that time - experienced fevers, chills, rigors - nausea, but no vomiting - some confusion - increasing difficulty with urination - dribbling, frequency - culminated in ER visit this evening - febrile, tachycardic, normotensive to hypotensive on arrival - mild confusion - w/u included CT which revealed significant right sided hydro with a series of right mid ureteral stones - no leukocytosis - Cr 1.7 - UA appears grossly infected - cultures sent (blood and urine); empiric treatment with tylenol and daptomycin - of note, he is s/p R knee replacement on 05/04/16 Vital Signs Past 12 Hours Date Time Temp Pulse Resp B/P Pulse Ox O2 Delivery O2 Flow Rate FiO2 05/31/16 20:10 37.3 59 16 94/53 96 05/31/16 19:17 101 05/31/16 19:00 39.0 05/31/16 18:50 96 Nasal Cannula 4.0 05/31/16 18:50 96 Nasal Cannula 4.0 05/31/16 18:44 117 18 98 Nasal Cannula 4.0 05/31/16 18:50 Red Blood Count 4.02, Mean Corpuscular Volume 88.8, Mean Corpuscular Hemoglobin 31.3, Mean Corpuscular Hemoglobin Concent 35.3, Mean Platelet Volume 9.6, Neutrophils (%) (Auto) 86.1, Lymphocytes (%) (Auto) 6.1, Monocytes (%) (Auto) 7.1, Eosinophils (%) (Auto) 0.0, Basophils (%) (Auto) 0.2, Neutrophils # (Auto) 5.68, Lymphocytes # (Auto) 0.40, Monocytes # (Auto) 0.47, Eosinophils # (Auto) 0.00, Basophils # (Auto) 0.01 05/31/16 18:50 Test 05/31/16 18:50 05/31/16 18:52 05/31/16 19:15 05/31/16 20:14 White Blood Count 6.59 K/uL (4.8-10.8) Red Blood Count 4.02 M/uL (4.7-6.1) Hemoglobin 12.6 g/dL (14.0-18.0) Hematocrit 35.7 % (42-52) Mean Corpuscular Volume 88.8 fL (80-100) Mean Corpuscular Hemoglobin 31.3 pg (25-34) Mean Corpuscular Hemoglobin Concent 35.3 g/dl (32-36) Platelet Count 179 K/uL (130-400) Mean Platelet Volume 9.6 fL (7.4-10.4) Neutrophils (%) (Auto) 86.1 % Lymphocytes (%) (Auto) 6.1 % Monocytes (%) (Auto) 7.1 % Eosinophils (%) (Auto) 0.0 % Basophils (%) (Auto) 0.2 % Neutrophils # (Auto) 5.68 K/uL (1.4-6.5) Lymphocytes # (Auto) 0.40 K/uL (1.2-3.4) Monocytes # (Auto) 0.47 K/uL (0.11-0.59) Eosinophils # (Auto) 0.00 K/uL (0-0.5) Basophils # (Auto) 0.01 K/uL (0-0.2) RDW Standard Deviation 43.8 fL (36.4-46.3) RDW Coefficient of Variation 13.4 % (11.5-14.5) Immature Granulocyte % (Auto) 0.5 % Immature Granulocyte # (Auto) 0.03 K/uL (0.00-0.02) Prothrombin Time 11.5 SECONDS (9.0-12.0) Prothromb Time International Ratio 1.1 (0.9-1.1) Activated Partial Thromboplast Time 35.9 SECONDS (21.0-31.0) Partial Thromboplastin Ratio 1.4 Anion Gap 12.0 mmol/L (3-11) Est Creatinine Clear Calc Drug Dose 55.5 ml/min Estimated GFR () 47.3 Estimated GFR (Non- 40.8 BUN/Creatinine Ratio 22.5 (10-20) Calcium Level 8.7 mg/dl (8.5-10.1) Magnesium Level 1.8 mg/dl (1.8-2.4) Total Bilirubin 0.7 mg/dl (0.2-1) Direct Bilirubin 0.3 mg/dl (0-0.2) Aspartate Amino Transf (AST/SGOT) 57 U/L (15-37) Alanine Aminotransferase (ALT/SGPT) 45 U/L (12-78) Alkaline Phosphatase 71 U/L (45-117) Total Protein 6.9 gm/dl (6.4-8.2) Albumin 2.9 gm/dl (3.4-5.0) Lipase 84 U/L (73-393) Thyroid Stimulating Hormone (TSH) 1.520 uIu/ml (0.300-4.500) Bedside Lactic Acid Venous 1.28 mmol/L (0.90-1.70) Urine Color YELLOW Urine Appearance TURBID (CLEAR) Urine pH 5.0 (4.5-7.5) Urine Specific Fisher 1.020 (1.000-1.030) Urine Protein 3+ (NEG) Urine Glucose (UA) NEG (NEG) Urine Ketones 1+ (NEG) Urine Occult Blood 3+ (NEG) Urine Nitrite POS (NEG) Urine Bilirubin NEG (NEG) Urine Urobilinogen NEG (NEG) Urine Leukocyte Esterase LARGE (NEG) Urine WBC (Auto) >30 /hpf (0-5) Urine RBC (Auto) 10-30 /hpf (0-4) Urine Hyaline Casts (Auto) 10-30 /lpf (0-5) Urine Epithelial Cells (Auto) >30 /lpf (0-5) Urine Bacteria (Auto) 4+ (NEG) Urine Renal Epithelial Cells 10-20 /lpf (0-5) Urine Pathogenic Casts 5-10 GRANULAR CASTS /lpf (0) Urine Yeast (Auto) (NONE PRSENT) Influenza Type A Antigen Neg for Influ A (NEG) Influenza Type B Antigen Neg for Influ B (NEG) Test 05/31/16 20:15 Laboratory Labs were reviewed and are within normal limits unless listed below. Labs are available in the chart and at [facility] Past History arthritis, GERD, gout, heart disease, high cholesterol, hypertension Past Surgical History: orthopedic surgery (b.l knee replacments - most recent on 05/04/16), other Family History no known fam hx of stones Social History Hx Tobacco Use In Past Year?: No Smoking: non-smoker Marital status: History of MDRO No Allergies Coded Allergies: Atenolol (Verified Adverse Reaction, Unknown, LIGHTHEADEDNESS, "FELT GOOFY ", 05/04/16) Medications Home Medications: Home Meds and Scripts Medications Dose Route/Sig Max Daily Dose Days Date Category Dose Instructions [Iron ] 1 Tab PO DAILY 05/31/16 Reported Tylenol (Acetaminophen) 500 Mg Tab 1,000 Mg PO TID 05/31/16 Reported Mometasone Furoate (Mometasone Furoate (Nasal)) 50 Mcg/Act Spr 2 Sprays JAJA QPM 05/31/16 Reported Aspirin 325 Mg Ectab 325 Mg PO BID 45 05/05/16 Rx Take to prevent blood clots. Gunlock-3 (Fish Oil) 1 Ea Cap 2 Tab PO BID 03/29/16 Reported Prinivil (Lisinopril) 10 Mg Tab 10 Mg PO QAM 03/29/16 Reported Zetia (Ezetimibe) 10 Mg Tab 10 Mg PO HS 03/26/15 Reported Allopurinol 300 Mg Tab 300 Mg PO HS 03/26/15 Reported Niacin Er (Niacin (Antihyperlipidemic)) 750 Mg Tab 2 Tabs PO QPM 03/26/15 Reported Calan Sr Ext Rel (Verapamil Hcl) 180 Mg Tab 180 Mg PO HS 03/26/15 Reported Inpatient Medications: Current Inpatient Medications Medications (Trade) Dose Ordered Sig/Carson Route Start Time Stop Time Status Last Admin Dose Admin Sodium Chloride 1,000 ml @ 999 mls/hr Q1H1M STAT IV 05/31/16 19:57 05/31/16 20:57 Sodium Chloride 1,000 ml @ 250 mls/hr Q4H STAT IV 05/31/16 20:01 06/01/16 00:00 Magnesium Sulfate/ Prmx (Magnesium Sulfate/Premixed D5W) 100 ml @ 100 mls/hr ONE ONCE IV 05/31/16 20:15 05/31/16 21:14 UNV Review of Systems Review of Systems Constitutional: + chills, + fever, + see HPI, No problem reported, No weight loss Eyes: No blurred vision, No double vision, No eye pain, No loss of night vision , No problem reported, No see HPI Neurological: + problem reported (some mild confusion) Endocrine: No excessive thirst, No problem reported, No see HPI, No tired/ sluggish, No too cold, No too hot Gastrointestinal: + abdominal pain, + nausea Cardiovascular: No angina, No chest pain, No heart murmur, No irregular heartbeat, No palpitations, No problem reported, No see HPI, No swelling ankles/ feet Respiratory: No chronic cough, No coughing up blood, No problem reported, No see HPI, No shortness of breath, No wheezing Skin: No boils, No dry skin, No problem reported, No rash, No see HPI Musculoskeletal: + back pain, + joint pain, + see HPI Blood / Lymphatic: No bleed easily, No bruise easily, No problem reported, No see HPI, No swollen glands Ears / Nose / Throat: No hearing loss, No hoarse voice, No problem reported, No see HPI, No sinus, No sore throat Psychologic / Mental: No difficulty sleeping, No nervous, No problem reported, No see HPI, No trouble remembering Male : + frequent urination, + kidney stones, + leaking urine, + problem reported, + weak stream All Other Systems: Reviewed and Negative Physical Exam Vital Signs: Vital Signs Past 12 Hours Date Time Temp Pulse Resp B/P Pulse Ox O2 Delivery O2 Flow Rate FiO2 05/31/16 20:10 37.3 59 16 94/53 96 05/31/16 19:17 101 05/31/16 19:00 39.0 05/31/16 18:50 96 Nasal Cannula 4.0 05/31/16 18:50 96 Nasal Cannula 4.0 05/31/16 18:44 117 18 98 Nasal Cannula 4.0 Physical Exam: General Appearance: WD/WN, + moderate distress (somewhat diaphoretic appearing) Eyes: bilateral eyes normal inspection ENT: normal ENT inspection, hearing grossly normal Neck: supple Respiratory/Chest: no respiratory distress, no accessory muscle use Cardiovascular: regular rate, rhythm, no edema, + pertinent finding (slightly hypotensive (88/49)) Gastrointestinal: Abdomen: normal abdomen Bladder: normal bladder Renal: normal renal (minimal CVA tenderness) Extremities: + pertinent finding (well healed knee incision - no erythema, no drainage, no warmth, trace swelling at most) Neurologic/Psychiatric: alert, normal mood/affect, oriented x 3 Skin: normal color, + diaphoresis Lymphatic: no adenopathy Assessment & Plan Assessment & Plan Infected, obstructing right ureteral stone - cultures sent, broad spectrum abx started - no evidence of infection in his recent joint replacement - low level troponin rise - discussed situation and options with the patient and his , recommended OR for cystoscopy and right ureteral stent insertion - risks, benefits, and alternatives discussed - beyer catheter in place - uncertain it will be necessary following our procedure - consent on the chart
--- NOTE | 2016-05-31 21:11 | History and Physical ---
History & Physical Date & Time of Service: May 31, 2016 at 20:47 Chief Complaint: Fever, Painful Urination, Back Pain Primary Care Physician: Joni Santiago M.D. (MEDICAL) History of Present Illness 66 year old male who presents to the ER with fever, painful urination, and back pain. Patient was recently admitted to [facility] 05/04 for elective right TKA. Post operative course was uneventful. Patient reports he had swelling and pain to the right calf. He had an US that was negative for DVT. He reports Dr. Gupta drained fluid out of his calf and pain and swelling have been improving. Patient reports he started getting sick 4 days ago. He reports fever of as high as 103, chills, and body aches. He also developed frequent urination, dysuria, and foul smelling urine. He denies hematuria. He reports right sided back pain. He reports nausea and diarrhea. No vomiting. He denies BRBPR and dark tarry stools. He denies chest pain. He reports mild shortness of breath at rest and with exertion today. He denies lightheadedness, dizziness, or syncopal events. In the ER, patient's U/A appears infected. CT abd/pelvis shows 3 obstructing renal calculi on the right side. Creat is 1.7 (normal baseline). He is tachycardic and temp is 39.0. Trop is 0.096. He was given Dapto, Zosyn, IVF, and Tylenol. Past Medical/Surgical History Medical Problems: (1) Dyslipidemia Status: Chronic (2) GERD (gastroesophageal reflux disease) Status: Chronic (3) Gout Status: Chronic (4) HOCM (hypertrophic obstructive cardiomyopathy) Permanent Comment: echo 08/2015 - preserved LVEF Status: Chronic (5) HTN (hypertension) Status: Chronic (6) ICD (implantable cardioverter-defibrillator), dual, in situ Status: Chronic Surgical Problems: (1) History of arthroplasty of left knee Status: Chronic (2) History of arthroplasty of right knee Status: Chronic Family History FH: colon cancer FATHER Social History Smoking Status: Former Smoker Alcohol Use: occasionally Immunizations History of Influenza Vaccine: Yes Influenza Vaccine Date: Feb 19, 2016 History of Tetanus Vaccine?: Yes Tetanus Immunization Date: Jan 17, 2005 History of Pneumococcal: Yes Pneumococcal Date: Apr 29, 2015 History of Hepatitis B Vaccine: Yes Hepatitis Immunization Date: Apr 25, 1992 Multi-Drug Resistant Organisms History of MDRO: No Allergies Coded Allergies: Atenolol (Verified Adverse Reaction, Unknown, LIGHTHEADEDNESS, "FELT GOOFY ", 05/04/16) Home Medications Scheduled Acetaminophen (Tylenol), 1,000 MG PO TID Allopurinol (Allopurinol), 300 MG PO HS Aspirin (Aspirin), 325 MG PO BID Ezetimibe (Zetia), 10 MG PO HS Fish Oil (Emery-3), 2 TAB PO BID Lisinopril (Prinivil), 10 MG PO QAM Mometasone Furoate (Nasal) (Mometasone Furoate), 2 SPRAYS JAJA QPM Niacin (Antihyperlipidemic) (Niacin Er), 2 TABS PO QPM Verapamil Hcl (Calan Sr Ext Rel), 180 MG PO HS [Iron ], 1 TAB PO DAILY Review of Systems 10 point review of systems was completed with the pertinent positives and negatives noted per the HPI Physical Exam Vital Signs Date Time Temp Pulse Resp B/P Pulse Ox O2 Delivery O2 Flow Rate FiO2 05/31/16 20:10 37.3 59 16 94/53 96 05/31/16 19:17 101 05/31/16 19:00 39.0 05/31/16 18:50 96 Nasal Cannula 4.0 05/31/16 18:50 96 Nasal Cannula 4.0 05/31/16 18:44 117 18 98 Nasal Cannula 4.0 General Appearance: no apparent distress Head: normocephalic Eyes: normal inspection ENT: hearing grossly normal Neck: supple, no JVD Respiratory/Chest: lungs clear, normal breath sounds, no respiratory distress Cardiovascular: regular rate, rhythm, normal peripheral pulses Abdomen/GI: normal bowel sounds, non tender, soft Genitourinary - Male: + pertinent finding (beyer in 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) Extremities/Musculoskelatal: + inflammation (RLE) Neurologic/Psych: no motor/sensory deficits, alert, normal mood/affect, oriented x 3 Skin: normal color, + diaphoresis Diagnostics Laboratory Results Results Past 24 Hours Test 05/31/16 18:50 05/31/16 18:52 05/31/16 19:15 05/31/16 20:14 Range/Units White Blood Count 6.59 4.8-10.8 K/uL Red Blood Count 4.02 4.7-6.1 M/uL Hemoglobin 12.6 14.0-18.0 g/dL Hematocrit 35.7 42-52 % Mean Corpuscular Volume 88.8 80-100 fL Mean Corpuscular Hemoglobin 31.3 25-34 pg Mean Corpuscular Hemoglobin Concent 35.3 32-36 g/dl Platelet Count 179 130-400 K/uL Mean Platelet Volume 9.6 7.4-10.4 fL Neutrophils (%) (Auto) 86.1 % Lymphocytes (%) (Auto) 6.1 % Monocytes (%) (Auto) 7.1 % Eosinophils (%) (Auto) 0.0 % Basophils (%) (Auto) 0.2 % Neutrophils # (Auto) 5.68 1.4-6.5 K/uL Lymphocytes # (Auto) 0.40 1.2-3.4 K/uL Monocytes # (Auto) 0.47 0.11-0.59 K/uL Eosinophils # (Auto) 0.00 0-0.5 K/uL Basophils # (Auto) 0.01 0-0.2 K/uL RDW Standard Deviation 43.8 36.4-46.3 fL RDW Coefficient of Variation 13.4 11.5-14.5 % Immature Granulocyte % (Auto) 0.5 % Immature Granulocyte # (Auto) 0.03 0.00-0.02 K/uL Prothrombin Time 11.5 9.0-12.0 SECONDS Prothromb Time International Ratio 1.1 0.9-1.1 Activated Partial Thromboplast Time 35.9 21.0-31.0 SECONDS Partial Thromboplastin Ratio 1.4 Sodium Level 132 136-145 mmol/L Potassium Level 3.9 3.5-5.1 mmol/L Chloride Level 99 98-107 mmol/L Carbon Dioxide Level 21 21-32 mmol/L Anion Gap 12.0 3-11 mmol/L Blood Urea Nitrogen 38 7-18 mg/dl Creatinine 1.70 0.60-1.40 mg/dl Est Creatinine Clear Calc Drug Dose 55.5 ml/min Estimated GFR () 47.3 Estimated GFR (Non- 40.8 BUN/Creatinine Ratio 22.5 10-20 Random Glucose 173 70-99 mg/dl Calcium Level 8.7 8.5-10.1 mg/dl Magnesium Level 1.8 1.8-2.4 mg/dl Total Bilirubin 0.7 0.2-1 mg/dl Direct Bilirubin 0.3 0-0.2 mg/dl Aspartate Amino Transf (AST/SGOT) 57 15-37 U/L Alanine Aminotransferase (ALT/SGPT) 45 12-78 U/L Alkaline Phosphatase 71 45-117 U/L Troponin I 0.096 0-0.045 ng/ml Total Protein 6.9 6.4-8.2 gm/dl Albumin 2.9 3.4-5.0 gm/dl Lipase 84 73-393 U/L Thyroid Stimulating Hormone (TSH) 1.520 0.300-4.500 uIu/ml Bedside Lactic Acid Venous 1.28 0.90-1.70 mmol/L Urine Color YELLOW Urine Appearance TURBID CLEAR Urine pH 5.0 4.5-7.5 Urine Specific [place] 1.020 1.000-1.030 Urine Protein 3+ NEG Urine Glucose (UA) NEG NEG Urine Ketones 1+ NEG Urine Occult Blood 3+ NEG Urine Nitrite POS NEG Urine Bilirubin NEG NEG Urine Urobilinogen NEG NEG Urine Leukocyte Esterase LARGE NEG Urine WBC (Auto) >30 0-5 /hpf Urine RBC (Auto) 10-30 0-4 /hpf Urine Hyaline Casts (Auto) 10-30 0-5 /lpf Urine Epithelial Cells (Auto) >30 0-5 /lpf Urine Bacteria (Auto) 4+ NEG Urine Renal Epithelial Cells 10-20 0-5 /lpf Urine Pathogenic Casts 5-10 GRANULAR CASTS 0 /lpf Urine Yeast (Auto) NONE PRSENT Influenza Type A Antigen Neg for Influ A NEG Influenza Type B Antigen Neg for Influ B NEG Test 05/31/16 20:15 Range/Units Microbiology Results 05/31/16 Blood Culture, Received Pending 05/31/16 Blood Culture, Received Pending 05/31/16 Urine Culture, Received Pending Diagnostic Radiology CXR IMPRESSION: No active disease in the chest. CT ABD/PELVIS IMPRESSION: 1. Severe right-sided hydronephrosis and hydroureter secondary to 3 obstructing proximal right ureteral calculi, the largest of which measures 16 x 7 x 7 mm. These are located the L4-5 level. 2. No evidence of bowel obstruction. No evidence of free air Impression Assessment and Plan SEPSIS DUE TO INFECTED RENAL CALCULI - admit to tele - presenting with tachycardia and fever; WBC and lactic acid WNL, BP stable - U/A infected, CT showing 3 obstructing right renal calculi with severe hydronephrosis - s/p Zosyn and Dapto in ED - will continue with Zosyn - IVF - urology consulted, ED in contact with Dr. Patterson MAHIN - likely combination of prerenal and obstructive - hold SUDHEER-i - IVF HX HOCM - echo 08/2015 - preserved EF - mild troponin elevation noted, likely due to acute illness - no reports of chest pain, continue to cycle cardiac enzymes HX NSVT S/P ICD - on verapamil HTN - holding lisinopril due to MAHIN GOUT - on allopurinol DVT PROPHYLAXIS - SCDs DISPO - In my clinical judgment this beneficiary meets acute admission criteria, established by [facility], that includes being hospitalized through two midnights. VTE Prophylaxis VTE Risk Assessment Done? Y/N: Yes Risk Level: Moderate Assessment/Plan IM ATTENDING : Yessica seen and examined. Preceding documentation by ROSI Kunz reviewed. FINAL ASSESSMENT AND PLAN as follows : 1. Sepsis secondary to complicated urinary tract infection/obstructive uropathy. 2. Acute renal failure secondary to illness 3. hx NSVT sp ICD as per records 4. Hypertension, blood pressure on the lower side. 5. Obstructive sleep apnea on CPAP. 6. Hyperglycemia, rule out diabetes. 7. troponinemia likely secondary to tachycardia, sepsis, abnormal kidney function. doubt ACS PCU CS. Zosyn. Urology consult RE renal colic/obstructive uropathy. ER physician already in touch with Dr. Patterson. Possible procedure tonight. Monitor creatinine response to IV fluids. Hold ACEI until creatinine at baseline. Check hemoglobin A1c. ff trops DVT prophylaxis, SCDs for now RE possible procedure. Heparin subQ. if OK w/ Urology Full code.
[2016-05-31 21:20] LABS: ARTERIAL BLD GAS O2 SATURATION 96.6 % (90-95); ARTERIAL BLOOD GAS BASE EXCESS -3.5 mEq/L (-9-1.8); ARTERIAL BLOOD GAS HCO3 19 mmol/L (19-24); ARTERIAL BLOOD GAS PO2 86 mm/Hg (80-95); ARTERIAL BLOOD GAS pH 7.47 (7.35-7.45)
[2016-05-31 21:21] LABS: ALLEN TEST POS (POS); O2 ADMINISTRATION 2 LITERS
[2016-05-31] MEDS ORDERED: VERAPAMIL HCL 180 MG TABCR PO ONE (21:23)
[2016-05-31] MEDS ORDERED: MIDAZOLAM HCL 1 MG/ML 2ML VIAL ONE (21:30)
[2016-05-31] MEDS ORDERED: HYDROmorphone INJ 1 MG/ML SYR IV PRN (21:30)
[2016-05-31] MEDS ORDERED: PROPOFOL IV EMULSION 10 MG/ML 20 ML VIAL IV ONE (21:30)
[2016-05-31] MEDS ORDERED: LIDOCAINE HCL 2% 2 ML VIAL (20MG/ML) ONE (21:30)
[2016-05-31] MEDS ORDERED: NITROGLYCERIN 0.4 MG SL PER TAB CHARGE SL PRN (21:30)
[2016-05-31] MEDS ORDERED: ONDANSETRON INJ 2 MG/ML 2 ML VIAL IV PRN (21:30)
[2016-05-31] MEDS ORDERED: FENTANYL CITRATE INJ 50 MCG/1 ML 2 ML VIAL ONE (21:31)
[2016-05-31] MEDS ORDERED: PIPERACILL/TAZOBAC CONSULT ACTIVE PRN (21:45)
[2016-05-31] MEDS ORDERED: OPTIRAY 300 INJ ONE (22:31)
[2016-05-31] MEDS ORDERED: LACTATED RINGER'S 1000ML 1,000 ML IV PRN (22:42)
--- NOTE | 2016-05-31 22:43 | [facility] Post Operative Brief Note ---
Immediate Operative Summary Operative Date May 31, 2016. Pre-Operative Diagnosis Right ureteral stone, sepsis Post-Operative Diagnosis Right ureteral stone, sepsis Procedure(s) Performed cystoscopy; right ureteral stent placement [id number] Surgeon Dr. Patterson Data Security Coordinator Surgeon(s) none Estimated Blood Loss 0ml Findings radiopaque mid right ureteral calculi - significant hydro. 200cc of clear urine extracted from the kidney Specimens For Culture: 1. Urine Culture and Sensitivity Right Kidney Drains [id number] Anesthesia MAC Complication(s) None Disposition Recovery Room / PACU (stable)
[2016-05-31] MEDS: VERAPAMIL HCL 180 MG TABCR PO SCH (23:00)
[2016-05-31] MEDS: FLUTICASONE PROPIONATE NA SPR 16 GM BTL SCH (23:00)
--- NOTE | 2016-05-31 23:25 | Anesthesiology Progress Note ---
Anesthesia Post Op Note Date & Time May 31, 2016 at 23:24 Vital Signs Pain Intensity: 0 Vital Signs Past 12 Hours Date Time Temp Pulse Resp B/P Pulse Ox O2 Delivery O2 Flow Rate FiO2 05/31/16 23:05 36.5 74 16 95/59 99 Nasal Cannula 3 05/31/16 22:55 36.5 74 16 95/60 99 Nasal Cannula 3 05/31/16 22:45 72 16 93/62 98 Nasal Cannula 3 05/31/16 22:35 36.1 70 16 91/59 98 Nasal Cannula 3 05/31/16 21:45 83 16 99/65 98 05/31/16 21:05 82 16 100/61 95 Room Air 05/31/16 20:10 37.3 59 16 94/53 96 05/31/16 19:17 101 05/31/16 19:00 39.0 05/31/16 18:50 96 Nasal Cannula 4.0 05/31/16 18:50 96 Nasal Cannula 4.0 05/31/16 18:44 117 18 98 Nasal Cannula 4.0 Notes Mental Status: alert / awake / arousable, participated in evaluation Pt Amnestic to Procedure: Yes Nausea / Vomiting: adequately controlled Pain: adequately controlled Airway Patency, RR, SpO2: stable & adequate BP & HR: stable & adequate Hydration State: stable & adequate Anesthetic Complications: no major complications apparent Pt did well. BP still low-normal from urosepsis but at pre-op baseline. Pt feeling much better.
[2016-05-31] MEDS ORDERED: MAGNESIUM SULFATE 1GM / D5W 1 GM in PREMIXED IN D5W 100 ML IV STA (23:37)
[2016-05-31 23:38] VITALS: BP 88/56; PULSE 70; TEMP 36.2; O2SAT 98
[2016-05-31 23:43] VITALS: BP 97/60; PULSE 73; TEMP 36.5; BMI 37.4
[2016-05-31 23:50] VITALS: BP 97/60; PULSE 73; TEMP 36.5; O2SAT 97; Ht 175.3 cm; Wt 119.4 kg
[2016-05-31 23:55] VITALS: BP 90/60; PULSE 71
--- NOTE | 2016-05-31 23:56 | OPERATIVE REPORT ---
DATE OF OPERATION: 05/31/2016 PREOPERATIVE DIAGNOSIS: Right ureteral calculus and urosepsis. POSTOPERATIVE DIAGNOSIS: Right ureteral calculus and urosepsis. PROCEDURE PERFORMED: Cystoscopy, right ureteral stent placement. ANESTHESIA: MAC. ESTIMATED BLOOD LOSS: 0. URINE OUTPUT: Not recorded. SPECIMENS: Right kidney urine for routine culture. DESCRIPTION OF THE PROCEDURE: Sandip Garcia was identified in the preoperative holding area. Appropriate informed consents reviewed and completed and the patient was transported to the operating suite. Upon arrival, he was placed in dorsal lithotomy position extremely carefully with minimal external flexion of the right knee secondary to a recent knee replacement. He received appropriate sedation and prior to arrival, he received appropriate preoperative antibiotics in the form of Zosyn and daptomycin. Following sterile prep and drape, I passed a 22-Kosovan cystoscope. Inspection of the urethra and prostate were unremarkable. Inspection of the bladder revealed healthy appearing bladder mucosa with mildly cloudy urine. I immediately identified the ureteral orifice on the right and I cannulated with a sensor wire and a 5-Kosovan open-ended catheter. Wire progressed just above the pelvic brim before meeting resistance. There was an opacity in that area, consistent with the stones seen previously on CT. With gentle manipulation, I was able to overcome some tortuosity and navigate the wire beyond the stones. I passed a 5-Kosovan open-ended catheter over top of this and straightened the ureter. With the catheter in the presumed location of the renal pelvis, I withdrew the wire and noted an immediate hydronephrotic drip with relatively clear urine. Using a 10 mL syringe, I evacuated 200 mL of urine. I passed a portion of this off the table as a specimen. I then gently inserted a small amount of contrast into the collecting system to confirm no evidence of perforation or other abnormality. I replaced the wire into the kidney and I placed a 6-Kosovan 22-32 cm stent without difficulty. There was an excellent curl seen in the kidney as well as the bladder. I decompressed the bladder and concluded the case. The patient was reversed from anesthesia and taken to the PACU in stable condition. I attest to the content of the Intraoperative Record and any orders documented therein. Any exceptio ns are noted below.
[2016-05-31 23:59] VITALS: O2SAT 97
[2016-05-31] MEDS ORDERED: SODIUM CHLORIDE 0.9% 1000ML 1,000 ML IV SCH (23:59)
[2016-06-01] VITALS (11 sets, daily range): BP systolic 98–119; BP diastolic 60–78; PULSE 56–89; TEMP 36.7–38.4; O2SAT 89–99
[2016-06-01] MEDS: ALLOPURINOL 300 MG TAB PO SCH ×2 (00:31→19:52)
[2016-06-01] MEDS: SODIUM CHLORIDE 0.9% 1000ML 1,000 ML IV SCH ×3 (00:34→18:56)
--- NOTE | 2016-06-01 02:13 | EMERGENCY ROOM VISIT NOTE ---
History Report prepared by Abdiel: Hanna Flowers Under the Supervision of: Dr. Sandip Mccullough M.D. First contact with patient: 18:31 Stated Complaint: CONFUSION, PAINFUL URINATION, FEVER History of Present Illness The patient is a 66 year old male who presents to the Emergency Room with complaints of constant urinary symptoms beginning 3 days ago. The patient states that he had a knee replacement 2 weeks ago and a pacemaker placed in March. He complains of intense chills, shaking, burning with urination, incontinence that started at the same time, right sided flank pain in the back, nausea, confusion, weakness, fever, and intermittent headaches that he took Tylenol for 6 hours ago. He notes that he has never experienced this before and has no history of any kidney stones or other kidney problems. Pt denies LOC, current headache, visual changes, neck pain, chest pain, breathing difficulties , vomiting, abdominal pain, melena, hematochezia, numbness, lymphadenopathy, rash, or other complaints. The patient rates his pain as a 7/10 in severity. Had Holter monitor twice and noted that at night time his heart rate goes low. Source of History: patient Onset: 3 days ago Position: other (global) Symptom Intensity: 7/10 Quality: burning Timing: constant Review of Systems See HPI for pertinent positives and negatives. A total of ten systems were reviewed and were otherwise negative. Past Medical & Surgical Medical Problems: (1) Dyslipidemia (2) GERD (gastroesophageal reflux disease) (3) Gout (4) HOCM (hypertrophic obstructive cardiomyopathy) (5) HTN (hypertension) (6) ICD (implantable cardioverter-defibrillator), dual, in situ (7) Sepsis Surgical Problems: (1) History of arthroplasty of left knee (2) History of arthroplasty of right knee Family History No pertinent family history stated. Social History Smoking Status: Former Smoker Marital Status: Housing Status: lives with significant other Current/Historical Medications Scheduled Acetaminophen (Tylenol), 1,000 MG PO TID Allopurinol (Allopurinol), 300 MG PO HS Aspirin (Aspirin), 325 MG PO BID Ezetimibe (Zetia), 10 MG PO HS Fish Oil ([place]-3), 2 TAB PO BID Lisinopril (Prinivil), 10 MG PO QAM Mometasone Furoate (Nasal) (Mometasone Furoate), 2 SPRAYS JAJA QPM Niacin (Antihyperlipidemic) (Niacin Er), 2 TABS PO QPM Verapamil Hcl (Calan Sr Ext Rel), 180 MG PO HS [Iron ], 1 TAB PO DAILY Allergies Coded Allergies: Atenolol (Verified Adverse Reaction, Unknown, LIGHTHEADEDNESS, "FELT GOOFY ", 05/04/16) Physical Exam Vital Signs Date Time Temp Pulse Resp B/P Pulse Ox O2 Delivery O2 Flow Rate FiO2 05/31/16 20:10 37.3 59 16 94/53 96 05/31/16 19:17 101 05/31/16 19:00 39.0 05/31/16 18:50 96 Nasal Cannula 4.0 05/31/16 18:50 96 Nasal Cannula 4.0 05/31/16 18:44 117 18 98 Nasal Cannula 4.0 Physical Exam GENERAL: Awake, diaphoretic, tired appearing, in no distresses. HENT: Normocephalic, atraumatic. Oropharynx unremarkable. EYES: Normal conjunctiva. Sclera non-icteric. NECK: Supple. No nuchal rigidity. FROM. No JVD. RESPIRATORY: Clear to auscultation. CARDIAC: Regular rate, normal rhythm. Extremities warm and well perfused. Pulses equal. ABDOMEN: Soft, non-distended. No tenderness to palpation. No rebound or guarding. No masses. RECTAL: Deferred. MUSCULOSKELETAL: Chest examination reveals no tenderness. The back is symmetrical on inspection without obvious abnormality. There is no CVA tenderness to palpation. No joint edema. LOWER EXTREMITIES: Calves are equal size bilaterally and non-tender. No edema. Healed incision over the right knee, no erythema, drainage, or dehiscence. NEURO: Normal sensorium. No sensory or motor deficits noted. SKIN: No rash or jaundice noted. Medical Decision & Procedures ER Provider Diagnostic Interpretation: X ray results as stated below per my interpretation and radiologist interpretation. Other radiology results as stated below per my review and radiologist interpretation CHEST ONE VIEW PORTABLE FINDINGS: The heart is the upper limits of normal in size. There is a left subclavian pacer/defibrillator present. There is no failure. There is no focal pulmonary consolidation. There are no pleural effusions.[ IMPRESSION: No active disease in the chest. Electronically signed by: Guido Tenorio M.D. 05/31/2016 6:59 PM Dictated Date/Time: 05/31/2016 6:[address] SCAN OF THE ABDOMEN AND PELVIS WITHOUT CONTRAST FINDINGS: Lower chest: There are coronary artery calcifications present. Liver: There is mild hepatic steatosis. No focal masses are visualized. Gallbladder: Unremarkable. Spleen: Normal in size and attenuation. Pancreas: The pancreas is atrophic. No masses are visualized. Adrenal glands: Unremarkable. Kidneys: No renal calculi are visualized. There is marked right-sided hydronephrosis. There are 3 proximal right ureteral calculi, the largest of which measures 16 mm x 7 x 7 mm there is right-sided perinephric stranding. There is right-sided periureteral edema Bowel: There are no transition zones indicate bowel obstruction. There is no evidence of acute diverticulitis. Peritoneum: There is no intraperitoneal free air or abdominal ascites. There are small fat-containing inguinal hernias. Vasculature: The abdominal aorta is normal in course and caliber. Adenopathy: None. Pelvic viscera: There is residual a Chandra catheter. There is air within the bladder likely iatrogenic. Skeletal structures: No destructive osseous lesions are seen. IMPRESSION: 1. Severe right-sided hydronephrosis and hydroureter secondary to 3 obstructing proximal right ureteral calculi, the largest of which measures 16 x 7 x 7 mm. These are located the L4-5 level. 2. No evidence of bowel obstruction. No evidence of free air Electronically signed by: Guido Tenorio M.D. 05/31/2016 8:03 PM Dictated Date/Time: 05/31/2016 7:57 PM Laboratory Results 05/31/16 18:50 Red Blood Count 4.02, Mean Corpuscular Volume 88.8, Mean Corpuscular Hemoglobin 31.3, Mean Corpuscular Hemoglobin Concent 35.3, Mean Platelet Volume 9.6, Neutrophils (%) (Auto) 86.1, Lymphocytes (%) (Auto) 6.1, Monocytes (%) (Auto) 7.1, Eosinophils (%) (Auto) 0.0, Basophils (%) (Auto) 0.2, Neutrophils # (Auto) 5.68, Lymphocytes # (Auto) 0.40, Monocytes # (Auto) 0.47, Eosinophils # (Auto) 0.00, Basophils # (Auto) 0.01 05/31/16 18:50 Test 05/31/16 18:50 05/31/16 18:52 05/31/16 19:15 White Blood Count 6.59 K/uL (4.8-10.8) Red Blood Count 4.02 M/uL (4.7-6.1) Hemoglobin 12.6 g/dL (14.0-18.0) Hematocrit 35.7 % (42-52) Mean Corpuscular Volume 88.8 fL (80-100) Mean Corpuscular Hemoglobin 31.3 pg (25-34) Mean Corpuscular Hemoglobin Concent 35.3 g/dl (32-36) Platelet Count 179 K/uL (130-400) Mean Platelet Volume 9.6 fL (7.4-10.4) Neutrophils (%) (Auto) 86.1 % Lymphocytes (%) (Auto) 6.1 % Monocytes (%) (Auto) 7.1 % Eosinophils (%) (Auto) 0.0 % Basophils (%) (Auto) 0.2 % Neutrophils # (Auto) 5.68 K/uL (1.4-6.5) Lymphocytes # (Auto) 0.40 K/uL (1.2-3.4) Monocytes # (Auto) 0.47 K/uL (0.11-0.59) Eosinophils # (Auto) 0.00 K/uL (0-0.5) Basophils # (Auto) 0.01 K/uL (0-0.2) RDW Standard Deviation 43.8 fL (36.4-46.3) RDW Coefficient of Variation 13.4 % (11.5-14.5) Immature Granulocyte % (Auto) 0.5 % Immature Granulocyte # (Auto) 0.03 K/uL (0.00-0.02) Prothrombin Time 11.5 SECONDS (9.0-12.0) Prothromb Time International Ratio 1.1 (0.9-1.1) Activated Partial Thromboplast Time 35.9 SECONDS (21.0-31.0) Partial Thromboplastin Ratio 1.4 Anion Gap 12.0 mmol/L (3-11) Est Creatinine Clear Calc Drug Dose 55.5 ml/min Estimated GFR () 47.3 Estimated GFR (Non- 40.8 BUN/Creatinine Ratio 22.5 (10-20) Calcium Level 8.7 mg/dl (8.5-10.1) Magnesium Level 1.8 mg/dl (1.8-2.4) Total Bilirubin 0.7 mg/dl (0.2-1) Direct Bilirubin 0.3 mg/dl (0-0.2) Aspartate Amino Transf (AST/SGOT) 57 U/L (15-37) Alanine Aminotransferase (ALT/SGPT) 45 U/L (12-78) Alkaline Phosphatase 71 U/L (45-117) Total Protein 6.9 gm/dl (6.4-8.2) Albumin 2.9 gm/dl (3.4-5.0) Lipase 84 U/L (73-393) Thyroid Stimulating Hormone (TSH) 1.520 uIu/ml (0.300-4.500) Bedside Lactic Acid Venous 1.28 mmol/L (0.90-1.70) Urine Color YELLOW Urine Appearance TURBID (CLEAR) Urine pH 5.0 (4.5-7.5) Urine Specific [place] 1.020 (1.000-1.030) Urine Protein 3+ (NEG) Urine Glucose (UA) NEG (NEG) Urine Ketones 1+ (NEG) Urine Occult Blood 3+ (NEG) Urine Nitrite POS (NEG) Urine Bilirubin NEG (NEG) Urine Urobilinogen NEG (NEG) Urine Leukocyte Esterase LARGE (NEG) Urine WBC (Auto) >30 /hpf (0-5) Urine RBC (Auto) 10-30 /hpf (0-4) Urine Hyaline Casts (Auto) 10-30 /lpf (0-5) Urine Epithelial Cells (Auto) >30 /lpf (0-5) Urine Bacteria (Auto) 4+ (NEG) Urine Renal Epithelial Cells 10-20 /lpf (0-5) Urine Pathogenic Casts 5-10 GRANULAR CASTS /lpf (0) Urine Yeast (Auto) (NONE PRSENT) Influenza Type A Antigen Neg for Influ A (NEG) Influenza Type B Antigen Neg for Influ B (NEG) Laboratory results reviewed by me Medications Administered Medications (Trade) Dose Ordered Sig/[place] Route Start Time Stop Time Status Last Admin Dose Admin Sodium Chloride (Nss 1000ml) 1,000 ml @ 999 mls/hr Q1H1M STAT IV 05/31/16 18:39 05/31/16 19:39 DC 05/31/16 18:59 999 MLS/HR Ondansetron HCl 4 mg 4 mg NOW STAT IV 05/31/16 18:39 05/31/16 18:44 DC 05/31/16 18:58 4 MG Daptomycin/Sodium Chloride (Cubicin IV/Nss 50ml) 60 ml @ 100 mls/hr NOW STAT IV 05/31/16 18:39 05/31/16 19:14 DC 05/31/16 20:10 100 MLS/HR Acetaminophen (Tylenol Tab) 1,000 mg NOW STAT PO 05/31/16 18:39 05/31/16 18:45 DC 05/31/16 18:58 1,000 MG Piperacillin Sod/ Tazobactam Sod 4.5 gm 4.5 gm NOW STAT IV 05/31/16 18:39 05/31/16 18:45 DC 05/31/16 20:10 4.5 GM Sodium Chloride 1,000 ml @ 999 mls/hr Q1H1M STAT IV 05/31/16 19:57 05/31/16 20:57 DC 05/31/16 20:00 999 MLS/HR Sodium Chloride (Nss 1000ml) 1,000 ml @ 250 mls/hr Q4H STAT IV 05/31/16 20:01 05/31/16 23:37 DC 05/31/16 21:06 250 MLS/HR ECG Indication: other (confusion) Rate (beats per minute): 55 Rhythm: sinus bradycardia Findings: PVC (frequent), other (pattern of bigemony) ED Course 1830: The patient was evaluated in room C10. A complete history and physical exam was performed. 1838: Zosyn IV 4.5gm IV, Tylenol tab 1000mg PO, Daptomycin 500mg/ Sodium Chloride 60ml @ 100mls/hr IV, Zofran Inj 4mg IV, Sodium Chloride 1000 ml @ 999 mls/hr IV, Sodium Chloride 1000 ml @ 125 mls/hr IV. 1956: Paged urology and [facility] hospitalist. I reevaluated the patient and updated him on his test results. 1956: Sodium Chloride 1000 ml @ 999 mls/hr IV. 2000: Sodium Chloride 1000 ml @ 250 mls/hr IV. 2001: Discussed the patient's case with Dr. Patterson of Urology. He will be evaluating the patient. 2007: Discussed the patient's case with Dr. Byrd of [facility]. The patient will be evaluated for further treatment and disposition. 2019: Upon reexamination, the patient was hemodynamically stable. I discussed the test results and treatment plan with the patient. The patient will be evaluated for further management. 2034: The patient is being evaluated by Dr. Patterson. Medical Decision Triage Nursing notes reviewed. The patient's presentation and history were concerning for flu like symptoms, urinary issues and weakness. Etiologies such as Influenza, sepsis,metabolic, infection, hypo/hyperglycemia, electrolyte abnormalities, cardiac sources, intracerebral event, toxicologic, neurologic, as well as others were entertained. The patient was evaluated. He was febrile. He had a mildly low blood pressure was not hypotensive. Blood work was obtained. Blood cultures were done. The patient has significant urinary symptoms. He was treated empirically for sepsis. A Chandra was placed for urinary sample collection. He was given IV daptomycin and Zosyn. There is no significant elevation of his white blood cell count or lactate. He does have a mildly elevated creatinine and dehydration. LFTs are slightly elevated. The patient had 2 L of IV fluids administered as well as a rate of 250 mL an hour. He had some borderline low blood pressure. Troponin was mildly elevated. Urinalysis was very concerning for infection. The patient had a slight elevation of his creatinine and was dehydrated on chemistry panel. A CT scan was performed. This showed significant ureteral obstruction and hydronephrosis on the right side secondary to kidney stone. Due to this the patient had a consultation made with Dr. Patterson of urology. He evaluated the patient in the Emergency Room and felt that operative intervention was necessary. I also consulted with Dr. Byrd of the hospitalist service. On reassessment the patient was feeling significantly better. Findings were discussed and the patient and his were very pleased with the treatment. The chart was completed utilizing [employer] Speech voice recognition software. Grammatical errors, random word insertions, pronoun errors, and incomplete sentences are an occasional consequence of this system due to software limitations, ambient noise, and hardware issues. Any formal questions or concerns about the content, text, or information contained within the body of this dictation should be directly addressed to the physician for clarification. Consults Time Called: 1956 Consulting Physician: Dr. Patterson - Urology Returned Call: 2001 Discussed the patient's case with Dr. Patterson of Urology. Additional Consults: Time Called: 1956 Consulted Physician: Dr. Byrd Returned Call: 2007 Additional Comments: Discussed the patient's case with Dr. Byrd of [facility]. The patient will be evaluated for further treatment and disposition. Impression Primary Impression: Sepsis due to urinary tract infection Additional Impressions: Elevated troponin Fever Ureterolithiasis Hydronephrosis Critical Care I have personally spent greater than 40 minutes of critical care time in the direct management of this patient. This includes bedside care, interpretation of diagnostic studies, and testing, discussion with consultants, patient, and family members, and other required patient management activities. This 40 minutes is in excess of all separately billable procedures. Scribe Attestation The scribe's documentation has been prepared under my direction and personally reviewed by me in its entirety. I confirm that the note above accurately reflects all work, treatment, procedures, and medical decision making performed by me. Departure Information Dispostion Being Evaluated By Surgeon Referrals Joni Santiago M.D. (MEDICAL) (PCP) Problem Qualifiers
--- NOTE | 2016-06-01 02:39 | HISTORY & PHYSICAL EXAMINATION ---
DATE OF ADMISSION: 05/31/2016 IM ATTENDING : Yessica seen and examined. Preceding documentation by ROSI Roldan reviewed. FINAL ASSESSMENT AND PLAN as follows : 1. Sepsis secondary to complicated urinary tract infection/obstructive uropathy. 2. Acute renal failure secondary to illness 3. hx NSVT sp ICD as per records 4. Hypertension, blood pressure on the lower side. 5. Obstructive sleep apnea on CPAP. 6. Hyperglycemia, rule out diabetes. 7. troponinemia likely secondary to tachycardia, sepsis, abnormal kidney function. doubt ACS PCU CS. Anun. Urology consult RE renal colic/obstructive uropathy. ER physician already in touch with Dr. Patterson. Possible procedure tonight. Monitor creatinine response to IV fluids. Hold ACEI until creatinine at baseline. Check hemoglobin A1c. ff trops DVT prophylaxis, SCDs for now RE possible procedure. Heparin subQ. if OK w/ Urology Full code. MTDD
[2016-06-01] MEDS: PIPERACILL/TAZOBAC IV 3.375 GM in DEXTROSE 5% 100ML IV SCH ×3 (04:08→19:51)
[2016-06-01 06:40] LABS: ESTIMATED AVERAGE GLUCOSE 120 mg/dl; HA1C FLAG Normal (Normal)
[2016-06-01 07:11] LABS: COMPLETE YES; EOS % 0.2 %; IG% 0.5 %; LYMPH % 11.2 %; LYMPH ABS # 0.63 K/uL (1.2-3.4); MEAN CELL VOLUME 90.9 fL (80-100); MEAN CORPUSCULAR HEMOGLOBIN 30.7 pg (25-34); MEAN CORPUSCULAR HGB CONC 33.8 g/dl (32-36); MEAN PLATELET VOLUME 9.7 fL (7.4-10.4); MONO % 7.3 %; NEUT % 80.8 %; PLATELET COUNT 173 K/uL (130-400); RED BLOOD COUNT 3.74 M/uL (4.7-6.1); WHITE BLOOD COUNT 5.65 K/uL (4.8-10.8)
[2016-06-01 07:42] LABS: BUN/CREATININE RATIO 22.5 (10-20); CALCIUM 8.2 mg/dl (8.5-10.1); CREATININE 1.4 mg/dl (0.60-1.40); POTASSIUM 3.9 mmol/L (3.5-5.1)
--- NOTE | 2016-06-01 08:01 | Progress Note ---
Subjective Date of Service: Jun 01, 2016. Subjective Pt evaluation today including: conversation w/ patient, chart review, lab review Voiding: no voiding problems 66 yo male s/p right ureteral stent placement for fever with right ureteral stone. Pt reports some dysuria, but otherwise feels well. Denies back pain, n/v, or f/c. Blood and urine cultures pending. White count normal this morning. Cr is 1.4. Problem List Medical Problems: (1) Elevated troponin Status: Acute (2) Fever Status: Acute (3) Hydronephrosis Status: Acute (4) Sepsis due to urinary tract infection Status: Acute (5) Ureterolithiasis Status: Acute Review of Systems Constitutional: + fever, No chills Respiratory: No shortness of breath Cardiac: No chest pain Abdomen: No nausea, No pain, No vomiting Male : + dysuria, No hematuria Heme: No abnormal bleeding/bruising Objective Vital Signs Date Time Temp Pulse Resp B/P Pulse Ox O2 Delivery O2 Flow Rate FiO2 06/01/16 07:20 37.4 89 20 115/78 95 Nasal Cannula 2.0 06/01/16 04:00 97 Nasal Cannula 2.0 06/01/16 03:19 36.7 75 20 107/68 97 CPAP 2.0 06/01/16 01:45 78 16 101/66 99 CPAP 06/01/16 00:40 75 16 101/66 99 CPAP 06/01/16 00:04 72 16 102/65 89 CPAP 05/31/16 23:59 97 Nasal Cannula 2.0 05/31/16 23:55 71 16 90/60 05/31/16 23:50 36.5 73 18 97/60 97 Nasal Cannula 2.0 05/31/16 23:49 2.0 05/31/16 23:43 36.5 73 18 97/60 05/31/16 23:38 36.2 70 18 88/56 98 Nasal Cannula 2.0 05/31/16 23:05 36.5 74 16 95/59 99 Nasal Cannula 3 05/31/16 22:55 36.5 74 16 95/60 99 Nasal Cannula 3 05/31/16 22:45 72 16 93/62 98 Nasal Cannula 3 05/31/16 22:35 36.1 70 16 91/59 98 Nasal Cannula 3 05/31/16 21:45 83 16 99/65 98 2/6/17 21:05 82 16 100/61 95 Room Air 05/31/16 20:10 37.3 59 16 94/53 96 05/31/16 19:17 101 05/31/16 19:00 39.0 05/31/16 18:50 96 Nasal Cannula 4.0 05/31/16 18:50 96 Nasal Cannula 4.0 05/31/16 18:44 117 18 98 Nasal Cannula 4.0 Physical Exam General Appearance: no apparent distress Eyes: normal inspection ENT: hearing grossly normal Neck: no JVD Respiratory/Chest: no respiratory distress, no accessory muscle use Cardiovascular: no JVD Extremities: normal inspection Neurologic/Psychiatric: alert, normal mood/affect, oriented x 3 Skin: normal color Laboratory Results Last 24 Hours Test 05/31/16 18:50 05/31/16 18:52 05/31/16 19:15 05/31/16 21:01 White Blood Count 6.59 K/uL Red Blood Count 4.02 M/uL Hemoglobin 12.6 g/dL Hematocrit 35.7 % Mean Corpuscular Volume 88.8 fL Mean Corpuscular Hemoglobin 31.3 pg Mean Corpuscular Hemoglobin Concent 35.3 g/dl Platelet Count 179 K/uL Mean Platelet Volume 9.6 fL Neutrophils (%) (Auto) 86.1 % Lymphocytes (%) (Auto) 6.1 % Monocytes (%) (Auto) 7.1 % Eosinophils (%) (Auto) 0.0 % Basophils (%) (Auto) 0.2 % Neutrophils # (Auto) 5.68 K/uL Lymphocytes # (Auto) 0.40 K/uL Monocytes # (Auto) 0.47 K/uL Eosinophils # (Auto) 0.00 K/uL Basophils # (Auto) 0.01 K/uL RDW Standard Deviation 43.8 fL RDW Coefficient of Variation 13.4 % Immature Granulocyte % (Auto) 0.5 % Immature Granulocyte # (Auto) 0.03 K/uL Prothrombin Time 11.5 SECONDS Prothromb Time International Ratio 1.1 Activated Partial Thromboplast Time 35.9 SECONDS Partial Thromboplastin Ratio 1.4 Sodium Level 132 mmol/L Potassium Level 3.9 mmol/L Chloride Level 99 mmol/L Carbon Dioxide Level 21 mmol/L Anion Gap 12.0 mmol/L Blood Urea Nitrogen 38 mg/dl Creatinine 1.70 mg/dl Est Creatinine Clear Calc Drug Dose 55.5 ml/min Estimated GFR () 47.3 Estimated GFR (Non- 40.8 BUN/Creatinine Ratio 22.5 Random Glucose 173 mg/dl Estimated Average Glucose 120 mg/dl Hemoglobin A1c 5.8 % Calcium Level 8.7 mg/dl Magnesium Level 1.8 mg/dl Total Bilirubin 0.7 mg/dl Direct Bilirubin 0.3 mg/dl Aspartate Amino Transf (AST/SGOT) 57 U/L Alanine Aminotransferase (ALT/SGPT) 45 U/L Alkaline Phosphatase 71 U/L Troponin I 0.096 ng/ml 0.107 ng/ml Total Protein 6.9 gm/dl Albumin 2.9 gm/dl Lipase 84 U/L Thyroid Stimulating Hormone (TSH) 1.520 uIu/ml Bedside Lactic Acid Venous 1.28 mmol/L Urine Color YELLOW Urine Appearance TURBID Urine pH 5.0 Urine Specific [place] 1.020 Urine Protein 3+ Urine Glucose (UA) NEG Urine Ketones 1+ Urine Occult Blood 3+ Urine Nitrite POS Urine Bilirubin NEG Urine Urobilinogen NEG Urine Leukocyte Esterase LARGE Urine WBC (Auto) >30 /hpf Urine RBC (Auto) 10-30 /hpf Urine Hyaline Casts (Auto) 10-30 /lpf Urine Epithelial Cells (Auto) >30 /lpf Urine Bacteria (Auto) 4+ Urine Renal Epithelial Cells 10-20 /lpf Urine Pathogenic Casts 5-10 GRANULAR CASTS /lpf Urine Yeast (Auto) Influenza Type A Antigen Neg for Influ A Influenza Type B Antigen Neg for Influ B Arterial Blood pH 7.47 Arterial Blood Partial Pressure CO2 27 mmHg Arterial Blood Partial Pressure O2 86 mm/Hg Arterial Blood HCO3 19 mmol/L Arterial Blood Oxygen Saturation 96.6 % Arterial Blood Base Excess -3.5 mEq/L Arterial Blood Gas Delivery 2 LITERS Lev Test POS Test 06/01/16 06:30 White Blood Count 5.65 K/uL Red Blood Count 3.74 M/uL Hemoglobin 11.5 g/dL Hematocrit 34.0 % Mean Corpuscular Volume 90.9 fL Mean Corpuscular Hemoglobin 30.7 pg Mean Corpuscular Hemoglobin Concent 33.8 g/dl Platelet Count 173 K/uL Mean Platelet Volume 9.7 fL Neutrophils (%) (Auto) 80.8 % Lymphocytes (%) (Auto) 11.2 % Monocytes (%) (Auto) 7.3 % Eosinophils (%) (Auto) 0.2 % Basophils (%) (Auto) 0.0 % Neutrophils # (Auto) 4.57 K/uL Lymphocytes # (Auto) 0.63 K/uL Monocytes # (Auto) 0.41 K/uL Eosinophils # (Auto) 0.01 K/uL Basophils # (Auto) 0.00 K/uL RDW Standard Deviation 45.8 fL RDW Coefficient of Variation 13.8 % Immature Granulocyte % (Auto) 0.5 % Immature Granulocyte # (Auto) 0.03 K/uL Sodium Level 138 mmol/L Potassium Level 3.9 mmol/L Chloride Level 105 mmol/L Carbon Dioxide Level 22 mmol/L Anion Gap 11.0 mmol/L Blood Urea Nitrogen 32 mg/dl Creatinine 1.40 mg/dl Est Creatinine Clear Calc Drug Dose 64.4 ml/min Estimated GFR () 59.8 Estimated GFR (Non- 51.6 BUN/Creatinine Ratio 22.5 Random Glucose 126 mg/dl Calcium Level 8.2 mg/dl Troponin I 0.079 ng/ml Assessment and Plan POD #1 s/p right ureteral stent placement. AFVSS. Pt doing well post-op. Will provide a diet this morning. Recommend he remain inpatient until he has been afebrile for at least 24hrs and culture sensitivities return. Would then transition to 2 weeks of PO abx. Will plan for outpatient ESWL vs URS once his infection has been adequately treated. Will continue to follow along with primary service at this time. Continued [facility] stay due to: fever
--- NOTE | 2016-06-01 08:23 | DIAGNOSTIC IMAGING REPORT ---
FLUOROSCOPIC IMAGES FROM RIGHT RETROGRADE EXAM CLINICAL HISTORY: Stent insertion. COMPARISON STUDY: CT of the abdomen and pelvis May 31, 2016. Fluoroscopy time: 51 seconds. FINDINGS: 4 fluoroscopic images from right retrograde exam were submitted for interpretation. These images demonstrate cannulation of the right ureter with placement of a right ureteral stent. Right hydronephrosis is noted. The proximal aspect of the stent projects over the right renal pelvis. Several images may demonstrate the right ureteropelvic junction calculi shown on prior CT. IMPRESSION: Fluoroscopic images from right ureteral stent insertion. Electronically signed by: Abhishek Marie M.D. 06/01/2016 8:22 AM Dictated Date/Time: 06/01/2016 8:19 AM
--- NOTE | 2016-06-01 09:27 | DIAGNOSTIC IMAGING REPORT ---
[facility]UB CLINICAL HISTORY: Right ureteral calculus. History of stent. COMPARISON STUDY: CT scan dated 05/31/2016 FINDINGS: There is mild gaseous prominence the bowel. There is a double-pigtail right-sided nephroureteral stent. There are clustered calcifications adjacent the proximal aspect of the stent extending over a length of 29 mm. These are consistent with proximal right ureteral calculi. IMPRESSION: 1. Right ureteral Steinstrasse. 2. Indwelling double-pigtail right-sided nephroureteral stent Electronically signed by: Guido Tenorio M.D. 06/01/2016 9:25 AM Dictated Date/Time: 06/01/2016 9:21 AM
[2016-06-01] MEDS ORDERED: NURSING VERBAL MED ORDER ONE (16:00)
[2016-06-01] MEDS ORDERED: ACETAMINOPHEN 325 MG TAB PO PRN (16:15)
--- NOTE | 2016-06-01 17:41 | Progress Note ---
Internal Med Progress Note Date of Service: Jun 01, 2016. Provider Documentation: SUBJECTIVE: The patient was seen and examined A little better today Still complains some pain Has had Fever today OBJECTIVE: Vital Signs-as noted below Exam: General-no distress Eyes-normal ENT-normal Neck-supple Lungs-clear to ausucltate bilaterally Heart-Regular Abdomen-Benign,no masses,bowel sound present Extremities-Trace edema bilaterally Neuro-AAOx3 Lab data as noted below. ASSESSMENT & PLAN: Sepsis secondary to complicated urinary tract infection/obstructive uropathy. S/P Cystoscopy and Right Ureteral stent placement Has been on IV Zosyn Urine culture-E Coli Blood Culture-pending Monitor in Tele [facility] Input:Recommend he remain inpatient until he has been afebrile for at least 24hrs and culture sensitivities return. Would then transition to 2 weeks of PO abx. Plan for outpatient ESWL vs URS once his infection has been adequately treated. Acute renal failure secondary to sepsis Continue IV fluid Monitor Renal function NSVT sp ICD as per records Troponinemia likely secondary to tachycardia, sepsis, abnormal kidney function. Doubt ACS No arrhythmia on Monitor No acute symptoms Hypertension, blood pressure on the lower side Hold ACEI until creatinine at baseline. . Obstructive sleep apnea on CPAP. No acute issue Hyperglycemia, rule out diabetes. Hb A1c DVT prophylaxis, SCDs for now RE possible procedure. Start Heparin subQ Full code. Vital Signs: Date Time Temp Pulse Resp B/P Pulse Ox O2 Delivery O2 Flow Rate FiO2 06/01/16 15:04 38.4 88 18 115/71 94 Room Air 06/01/16 12:00 Room Air 06/01/16 11:04 38.1 69 20 114/73 94 Room Air 06/01/16 09:30 Nasal Cannula 2.0 06/01/16 08:00 Room Air 06/01/16 07:20 37.4 89 20 115/78 95 Nasal Cannula 2.0 06/01/16 04:00 97 Nasal Cannula 2.0 06/01/16 03:19 36.7 75 20 107/68 97 CPAP 2.0 06/01/16 01:45 78 16 101/66 99 CPAP 06/01/16 00:40 75 16 101/66 99 CPAP 06/01/16 00:04 72 16 102/65 89 CPAP 05/31/16 23:59 97 Nasal Cannula 2.0 05/31/16 23:55 71 16 90/60 05/31/16 23:50 36.5 73 18 97/60 97 Nasal Cannula 2.0 05/31/16 23:49 2.0 05/31/16 23:43 36.5 73 18 97/60 05/31/16 23:38 36.2 70 18 88/56 98 Nasal Cannula 2.0 05/31/16 23:05 36.5 74 16 95/59 99 Nasal Cannula 3 05/31/16 22:55 36.5 74 16 95/60 99 Nasal Cannula 3 05/31/16 22:45 72 16 93/62 98 Nasal Cannula 3 05/31/16 22:35 36.1 70 16 91/59 98 Nasal Cannula 3 05/31/16 21:45 83 16 99/65 98 05/31/16 21:05 82 16 100/61 95 Room Air 05/31/16 20:10 37.3 59 16 94/53 96 05/31/16 19:17 101 05/31/16 19:00 39.0 05/31/16 18:50 96 Nasal Cannula 4.0 05/31/16 18:50 96 Nasal Cannula 4.0 05/31/16 18:44 117 18 98 Nasal Cannula 4.0 Lab Results: Results Past 24 Hours Test 05/31/16 18:50 05/31/16 18:52 05/31/16 19:15 05/31/16 21:01 Range/Units White Blood Count 6.59 4.8-10.8 K/uL Red Blood Count 4.02 4.7-6.1 M/uL Hemoglobin 12.6 14.0-18.0 g/dL Hematocrit 35.7 42-52 % Mean Corpuscular Volume 88.8 80-100 fL Mean Corpuscular Hemoglobin 31.3 25-34 pg Mean Corpuscular Hemoglobin Concent 35.3 32-36 g/dl Platelet Count 179 130-400 K/uL Mean Platelet Volume 9.6 7.4-10.4 fL Neutrophils (%) (Auto) 86.1 % Lymphocytes (%) (Auto) 6.1 % Monocytes (%) (Auto) 7.1 % Eosinophils (%) (Auto) 0.0 % Basophils (%) (Auto) 0.2 % Neutrophils # (Auto) 5.68 1.4-6.5 K/uL Lymphocytes # (Auto) 0.40 1.2-3.4 K/uL Monocytes # (Auto) 0.47 0.11-0.59 K/uL Eosinophils # (Auto) 0.00 0-0.5 K/uL Basophils # (Auto) 0.01 0-0.2 K/uL RDW Standard Deviation 43.8 36.4-46.3 fL RDW Coefficient of Variation 13.4 11.5-14.5 % Immature Granulocyte % (Auto) 0.5 % Immature Granulocyte # (Auto) 0.03 0.00-0.02 K/uL Prothrombin Time 11.5 9.0-12.0 SECONDS Prothromb Time International Ratio 1.1 0.9-1.1 Activated Partial Thromboplast Time 35.9 21.0-31.0 SECONDS Partial Thromboplastin Ratio 1.4 Sodium Level 132 136-145 mmol/L Potassium Level 3.9 3.5-5.1 mmol/L Chloride Level 99 98-107 mmol/L Carbon Dioxide Level 21 21-32 mmol/L Anion Gap 12.0 3-11 mmol/L Blood Urea Nitrogen 38 7-18 mg/dl Creatinine 1.70 0.60-1.40 mg/dl Est Creatinine Clear Calc Drug Dose 55.5 ml/min Estimated GFR () 47.3 Estimated GFR (Non- 40.8 BUN/Creatinine Ratio 22.5 10-20 Random Glucose 173 70-99 mg/dl Estimated Average Glucose 120 mg/dl Hemoglobin A1c 5.8 4.5-5.6 % Calcium Level 8.7 8.5-10.1 mg/dl Magnesium Level 1.8 1.8-2.4 mg/dl Total Bilirubin 0.7 0.2-1 mg/dl Direct Bilirubin 0.3 0-0.2 mg/dl Aspartate Amino Transf (AST/SGOT) 57 15-37 U/L Alanine Aminotransferase (ALT/SGPT) 45 12-78 U/L Alkaline Phosphatase 71 45-117 U/L Troponin I 0.096 0.107 0-0.045 ng/ml Total Protein 6.9 6.4-8.2 gm/dl Albumin 2.9 3.4-5.0 gm/dl Lipase 84 73-393 U/L Thyroid Stimulating Hormone (TSH) 1.520 0.300-4.500 uIu/ml Bedside Lactic Acid Venous 1.28 0.90-1.70 mmol/L Urine Color YELLOW Urine Appearance TURBID CLEAR Urine pH 5.0 4.5-7.5 Urine Specific [place] 1.020 1.000-1.030 Urine Protein 3+ NEG Urine Glucose (UA) NEG NEG Urine Ketones 1+ NEG Urine Occult Blood 3+ NEG Urine Nitrite POS NEG Urine Bilirubin NEG NEG Urine Urobilinogen NEG NEG Urine Leukocyte Esterase LARGE NEG Urine WBC (Auto) >30 0-5 /hpf Urine RBC (Auto) 10-30 0-4 /hpf Urine Hyaline Casts (Auto) 10-30 0-5 /lpf Urine Epithelial Cells (Auto) >30 0-5 /lpf Urine Bacteria (Auto) 4+ NEG Urine Renal Epithelial Cells 10-20 0-5 /lpf Urine Pathogenic Casts 5-10 GRANULAR CASTS 0 /lpf Urine Yeast (Auto) NONE PRSENT Influenza Type A Antigen Neg for Influ A NEG Influenza Type B Antigen Neg for Influ B NEG Arterial Blood pH 7.47 7.35-7.45 Arterial Blood Partial Pressure CO2 27 35-46 mmHg Arterial Blood Partial Pressure O2 86 80-95 mm/Hg Arterial Blood HCO3 19 19-24 mmol/L Arterial Blood Oxygen Saturation 96.6 90-95 % Arterial Blood Base Excess -3.5 -9-1.8 mEq/L Arterial Blood Gas Delivery 2 LITERS Lev Test POS POS Test 06/01/16 06:30 Range/Units White Blood Count 5.65 4.8-10.8 K/uL Red Blood Count 3.74 4.7-6.1 M/uL Hemoglobin 11.5 14.0-18.0 g/dL Hematocrit 34.0 42-52 % Mean Corpuscular Volume 90.9 80-100 fL Mean Corpuscular Hemoglobin 30.7 25-34 pg Mean Corpuscular Hemoglobin Concent 33.8 32-36 g/dl Platelet Count 173 130-400 K/uL Mean Platelet Volume 9.7 7.4-10.4 fL Neutrophils (%) (Auto) 80.8 % Lymphocytes (%) (Auto) 11.2 % Monocytes (%) (Auto) 7.3 % Eosinophils (%) (Auto) 0.2 % Basophils (%) (Auto) 0.0 % Neutrophils # (Auto) 4.57 1.4-6.5 K/uL Lymphocytes # (Auto) 0.63 1.2-3.4 K/uL Monocytes # (Auto) 0.41 0.11-0.59 K/uL Eosinophils # (Auto) 0.01 0-0.5 K/uL Basophils # (Auto) 0.00 0-0.2 K/uL RDW Standard Deviation 45.8 36.4-46.3 fL RDW Coefficient of Variation 13.8 11.5-14.5 % Immature Granulocyte % (Auto) 0.5 % Immature Granulocyte # (Auto) 0.03 0.00-0.02 K/uL Sodium Level 138 136-145 mmol/L Potassium Level 3.9 3.5-5.1 mmol/L Chloride Level 105 98-107 mmol/L Carbon Dioxide Level 22 21-32 mmol/L Anion Gap 11.0 3-11 mmol/L Blood Urea Nitrogen 32 7-18 mg/dl Creatinine 1.40 0.60-1.40 mg/dl Est Creatinine Clear Calc Drug Dose 64.4 ml/min Estimated GFR () 59.8 Estimated GFR (Non- 51.6 BUN/Creatinine Ratio 22.5 10-20 Random Glucose 126 70-99 mg/dl Calcium Level 8.2 8.5-10.1 mg/dl Troponin I 0.079 0-0.045 ng/ml Microbiology Results 05/31/16 Blood Culture, Received Pending 05/31/16 Blood Culture, Received Pending 05/31/16 Urine Culture - Preliminary, Resulted Escherichia Coli
[2016-06-01] MEDS: FLUTICASONE PROPIONATE NA SPR 16 GM BTL SCH (19:51)
[2016-06-01] MEDS: VERAPAMIL HCL 180 MG TABCR PO SCH (19:51)
[2016-06-01] MEDS: TRAMADOL HCL 50 MG TAB PO PRN (20:00)
[2016-06-01] MEDS: HEPARIN SOD 5000 UNIT/0.5 ML CARP SQ SCH (21:37)
[2016-06-02 03:46] VITALS: BP 126/71; PULSE 57; TEMP 37.2; O2SAT 94
[2016-06-02] MEDS: PIPERACILL/TAZOBAC IV 3.375 GM in DEXTROSE 5% 100ML IV SCH (03:50)
[2016-06-02] MEDS: SODIUM CHLORIDE 0.9% 1000ML 1,000 ML IV SCH ×2 (03:50→08:18)
[2016-06-02] MEDS: HEPARIN SOD 5000 UNIT/0.5 ML CARP SQ SCH ×3 (06:07→20:25)
[2016-06-02 06:54] LABS: BUN/CREATININE RATIO 21.8 (10-20); CREATININE 1.3 mg/dl (0.60-1.40)
[2016-06-02 07:55] VITALS: BP 120/75; PULSE 73; TEMP 37.3; O2SAT 94
--- NOTE | 2016-06-02 08:12 | Progress Note ---
Subjective Date of Service: Jun 02, 2016. Subjective Pt evaluation today including: conversation w/ patient, chart review, lab review Voiding: no voiding problems 66 yo male s/p right ureteral stent placement for stone with fever. Pt c/o dysuria, urgency, back discomfort, and nausea this morning. Denies vomiting. Last fever noted at 1504 yesterday. UC&S growing e coli. Montero sensitive. [place]str[place] noted on KUB from yesterday. Problem List Medical Problems: (1) Elevated troponin Status: Acute (2) Fever Status: Acute (3) Hydronephrosis Status: Acute (4) Sepsis due to urinary tract infection Status: Acute (5) Ureterolithiasis Status: Acute Review of Systems Constitutional: No chills, No fever Respiratory: No shortness of breath Cardiac: No chest pain Abdomen: + nausea, No pain, No vomiting Male : + dysuria, + urinary frequency, No hematuria Heme: No abnormal bleeding/bruising Objective Vital Signs Date Time Temp Pulse Resp B/P Pulse Ox O2 Delivery O2 Flow Rate FiO2 06/02/16 07:55 37.3 73 18 120/75 94 Room Air 06/02/16 04:02 CPAP 06/02/16 03:46 37.2 57 21 126/71 94 Room Air 06/02/16 00:02 CPAP 06/01/16 23:27 37.0 58 18 119/69 96 CPAP 06/01/16 21:50 56 93 21 06/01/16 20:00 Room Air 06/01/16 19:25 37.2 68 19 98/60 95 Room Air 06/01/16 16:00 Room Air 06/01/16 15:04 38.4 88 18 115/71 94 Room Air 06/01/16 12:00 Room Air 06/01/16 11:04 38.1 69 20 114/73 94 Room Air 06/01/16 09:30 Nasal Cannula 2.0 Physical Exam General Appearance: no apparent distress Eyes: normal inspection ENT: hearing grossly normal Neck: no JVD Respiratory/Chest: no respiratory distress, no accessory muscle use Cardiovascular: no JVD Extremities: normal inspection Neurologic/Psychiatric: alert, normal mood/affect, oriented x 3 Skin: normal color Laboratory Results Last 24 Hours Test 06/02/16 05:53 Sodium Level 137 mmol/L Potassium Level 4.0 mmol/L Chloride Level 106 mmol/L Carbon Dioxide Level 22 mmol/L Anion Gap 9.0 mmol/L Blood Urea Nitrogen 28 mg/dl Creatinine 1.30 mg/dl Est Creatinine Clear Calc Drug Dose 70.3 ml/min Estimated GFR () 65.4 Estimated GFR (Non- 56.5 BUN/Creatinine Ratio 21.8 Random Glucose 121 mg/dl Calcium Level 8.0 mg/dl Assessment and Plan POD #2 s/p right ureteral stent placement. AFVSS. I have discussed with the pt that back discomfort, dysuria, hematuria, urgency, and frequency are all common after stent placement. Will start Pyridium for dysuria. Recommend he remain inpatient until he has been afebrile for at least 24hrs. Would transition to 2 weeks of oral Cipro or Bactrim DS prior to d/c home. Plan discussed with Dr. Gupta yesterday. No further input as far as abx in light of recent TKA from his perspective. OK to resume ASA from perspective. Will plan for outpatient ESWL vs URS once his infection has been adequately treated. Will arrange for outpatient f/u in 1 week to discuss further. Will continue to follow along with primary service at this time.
[2016-06-02] MEDS: PHENAZOPYRIDINE HCL 200 MG TAB PO PRN ×2 (08:45→20:27)
[2016-06-02 11:12] VITALS: BP 124/70; PULSE 65; TEMP 36.7; O2SAT 95
--- NOTE | 2016-06-02 11:28 | Progress Note ---
Internal Med Progress Note Date of Service: Jun 02, 2016. Provider Documentation: SUBJECTIVE: The patient was seen and examined Still complains some pain Has had Fever 06/01/16 Much better today No more fever OBJECTIVE: Vital Signs-as noted below Exam: General-no distress Eyes-normal ENT-normal Neck-supple Lungs-clear to ausucltate bilaterally Heart-Regular Abdomen-Benign,no masses,bowel sound present No tenderness in renal angles Extremities-Trace edema bilaterally Neuro-AAOx3 Lab data as noted below. ASSESSMENT & PLAN: Sepsis secondary to complicated urinary tract infection/obstructive uropathy. S/P Cystoscopy and Right Ureteral stent placement Has been on IV Zosyn Urine culture-E Coli-pansensitive Blood Culture-negative Monitor in Tele [facility] Input:Recommend he remain inpatient until he has been afebrile for at least 24hrs and culture sensitivities return. Would then transition to 2 weeks of PO abx. Plan for outpatient ESWL vs URS once his infection has been adequately treated. D/C Zosyn and start Cipro Acute renal failure secondary to sepsis Continue IV fluid Monitor Renal function-much improved NSVT sp ICD as per records Troponinemia likely secondary to tachycardia, sepsis, abnormal kidney function. Doubt ACS No arrhythmia on Monitor No acute symptoms Hypertension, blood pressure on the lower side Hold ACEI until creatinine at baseline. Will restart ACEI on discharge Obstructive sleep apnea on CPAP. No acute issue Hyperglycemia, rule out diabetes. Hb A1c-5.8 DVT prophylaxis, SCDs for now RE possible procedure. Start Heparin subQ Full code. Transfer to Medical Vital Signs: Date Time Temp Pulse Resp B/P Pulse Ox O2 Delivery O2 Flow Rate FiO2 06/02/16 11:12 36.7 65 18 124/70 95 Room Air 06/02/16 09:33 Room Air 06/02/16 08:00 Room Air 06/02/16 07:55 37.3 73 18 120/75 94 Room Air 06/02/16 04:02 CPAP 06/02/16 03:46 37.2 57 21 126/71 94 Room Air 06/02/16 00:02 CPAP 06/01/16 23:27 37.0 58 18 119/69 96 CPAP 06/01/16 21:50 56 93 21 06/01/16 20:00 Room Air 06/01/16 19:25 37.2 68 19 98/60 95 Room Air 06/01/16 16:00 Room Air 06/01/16 15:04 38.4 88 18 115/71 94 Room Air 06/01/16 12:00 Room Air Lab Results: Results Past 24 Hours Test 06/02/16 05:53 Range/Units Sodium Level 137 136-145 mmol/L Potassium Level 4.0 3.5-5.1 mmol/L Chloride Level 106 98-107 mmol/L Carbon Dioxide Level 22 21-32 mmol/L Anion Gap 9.0 3-11 mmol/L Blood Urea Nitrogen 28 7-18 mg/dl Creatinine 1.30 0.60-1.40 mg/dl Est Creatinine Clear Calc Drug Dose 70.3 ml/min Estimated GFR () 65.4 Estimated GFR (Non- 56.5 BUN/Creatinine Ratio 21.8 10-20 Random Glucose 121 70-99 mg/dl Calcium Level 8.0 8.5-10.1 mg/dl
[2016-06-02] MEDS: TRAMADOL HCL 50 MG TAB PO PRN ×2 (11:40→20:24)
[2016-06-02 13:30] VITALS: BP 121/73; PULSE 55; TEMP 37.4; O2SAT 98
[2016-06-02 13:42] VITALS: BP 121/73; PULSE 55; TEMP 37.4; O2SAT 98
[2016-06-02 16:20] VITALS: O2SAT 98
[2016-06-02] MEDS ORDERED: NURSING VERBAL MED ORDER ONE (20:15)
[2016-06-02] MEDS: FLUTICASONE PROPIONATE NA SPR 16 GM BTL SCH (20:26)
[2016-06-02] MEDS: VERAPAMIL HCL 180 MG TABCR PO SCH (20:27)
[2016-06-02] MEDS: ASPIRIN 325 MG ECTAB PO SCH (20:28)
[2016-06-02] MEDS: ALLOPURINOL 300 MG TAB PO SCH (20:28)
[2016-06-02] MEDS: CIPROFLOXACIN 500 MG TAB PO SCH (20:29)
[2016-06-03 00:03] VITALS: BP 112/63; PULSE 55; TEMP 36.6; O2SAT 98
[2016-06-03] MEDS: TRAMADOL HCL 50 MG TAB PO PRN ×2 (04:36→13:33)
[2016-06-03] MEDS: HEPARIN SOD 5000 UNIT/0.5 ML CARP SQ SCH ×2 (06:01→13:36)
[2016-06-03 07:31] VITALS: BP 108/68; PULSE 70; TEMP 36.9; O2SAT 97
[2016-06-03 08:19] LABS: BUN/CREATININE RATIO 18.1 (10-20); CALCIUM 8.3 mg/dl (8.5-10.1); CREATININE 1.2 mg/dl (0.60-1.40); POTASSIUM 3.9 mmol/L (3.5-5.1)
[2016-06-03] MEDS ORDERED: TAMSULOSIN HCL 0.4 MG CAP PO ONE (08:30)
--- NOTE | 2016-06-03 08:34 | Progress Note ---
Subjective Date of Service: Jun 03, 2016. Subjective Pt evaluation today including: conversation w/ patient, chart review, lab review 66 yo male s/p right ureteral stent placement. The pt has remained afebrile for >24hrs. Cr pending this morning, but has normalized over the past 2 days. UC&S growing e coli. He has been transitioned to PO Cipro. He reports persistent right back pain and "orange urine" this morning. He also c /o fatigue, but says his "mental acuity" is returning an overall is feeling better. Urgency and frequency have improved. Dysuria has improved with initiation of Pyridium. Problem List Medical Problems: (1) Elevated troponin Status: Acute (2) Fever Status: Acute (3) Hydronephrosis Status: Acute (4) Sepsis due to urinary tract infection Status: Acute (5) Ureterolithiasis Status: Acute Review of Systems Constitutional: No chills, No fever Respiratory: No shortness of breath Cardiac: No chest pain Abdomen: No nausea, No pain, No vomiting Musculoskeletal: + problem reported (right back pain ) Male : No dysuria, No hematuria Objective Vital Signs Date Time Temp Pulse Resp B/P Pulse Ox O2 Delivery O2 Flow Rate FiO2 06/03/16 07:31 36.9 70 18 108/68 97 Room Air 06/03/16 00:03 Room Air CPAP 06/03/16 00:03 36.6 55 16 112/63 98 Room Air 06/02/16 16:20 98 Room Air 06/02/16 13:42 37.4 55 18 121/73 98 Room Air 06/02/16 13:30 37.4 55 18 121/73 98 Room Air 06/02/16 12:00 Room Air 06/02/16 11:12 36.7 65 18 124/70 95 Room Air 06/02/16 09:33 Room Air Physical Exam General Appearance: no apparent distress, + obese Eyes: normal inspection ENT: hearing grossly normal Neck: no JVD Respiratory/Chest: no respiratory distress, no accessory muscle use Cardiovascular: no JVD Extremities: normal inspection Neurologic/Psychiatric: alert, normal mood/affect, oriented x 3 Skin: normal color Laboratory Results Last 24 Hours Test 06/03/16 07:25 Assessment and Plan POD #3 s/p right ureteral stent placement for stone with fever. AFVSS. I have discussed with the pt that back discomfort, dysuria, hematuria, urgency, and frequency are all common after stent placement. Continue Pyridium for dysuria. Continue Cipro for 14 days total of therapy. OK to resume ASA from perspective. Will plan for outpatient ESWL vs URS once his infection has been adequately treated. The p is scheduled to f/u with myself next Tuesday, 2-15. Pt OK for d/c home from perspective. Recommend d/c home on Flomax, Cipro, and Pyridium. Will initiate Flomax this morning while inpatient. Will check for orthostasis after administration. Thanks for allowing us to participate in this pt's care. Recall PRN issues.
[2016-06-03] MEDS: CIPROFLOXACIN 500 MG TAB PO SCH (08:59)
[2016-06-03] MEDS: ASPIRIN 325 MG ECTAB PO SCH (08:59)
[2016-06-03 10:00] VITALS: BP_SYST 108; BP_SYST 138; BP_SYST 140; BP_DIAS 67; BP_DIAS 73; BP_DIAS 78; PULSE 60; PULSE 62; PULSE 65
--- NOTE | 2016-06-03 12:11 | Progress Note ---
Internal Med Progress Note Date of Service: Jun 03, 2016. Provider Documentation: SUBJECTIVE: The patient was seen and examined Still complains some pain Has had Fever 06/01/16 Much better today No more fever ,CHILLS AND CLINICALLY A LOT BETTER Ambulating well without any difficulty OBJECTIVE: Vital Signs-as noted below Exam: General-no distress at rest Eyes-normal ENT-normal Neck-supple Lungs-clear to ausucltate bilaterally Heart-Regular Abdomen-Benign,no masses,bowel sound present No tenderness in renal angles Extremities-Trace edema bilaterally Neuro-AAOx3 Lab data as noted below. ASSESSMENT & PLAN: Sepsis secondary to complicated urinary tract infection/obstructive uropathy. S/P Cystoscopy and Right Ureteral stent placement Has been on IV Zosyn Urine culture-E Coli-pansensitive Blood Culture-negative Monitor in Tele [facility]iate [facility]rology Input:Recommend he remain inpatient until he has been afebrile for at least 24hrs and culture sensitivities return. Would then transition to 2 weeks of PO abx. Plan for outpatient ESWL vs URS once his infection has been adequately treated. D/C Zosyn and start Cipro Will continue Cipro for 14 days in total Acute renal failure secondary to sepsis Continue IV fluid Monitor Renal function-much improved Renal function normalized NSVT sp ICD as per records Troponinemia likely secondary to tachycardia, sepsis, abnormal kidney function. Doubt ACS No arrhythmia on Monitor No acute symptoms Hypertension, blood pressure on the lower side Hold ACEI until creatinine at baseline. Will restart ACEI on discharge No postural hypotension Obstructive sleep apnea on CPAP. No acute issue Hyperglycemia, rule out diabetes. Hb A1c-5.8 DVT prophylaxis, SCDs for now RE possible procedure. Start Heparin subQ Full code. Discharge home today Vital Signs: Date Time Temp Pulse Resp B/P Pulse Ox O2 Delivery O2 Flow Rate FiO2 06/03/16 10:00 60 108/67 62 138/78 65 140/73 06/03/16 07:31 36.9 70 18 108/68 97 Room Air 06/03/16 00:03 Room Air CPAP 06/03/16 00:03 36.6 55 16 112/63 98 Room Air 06/02/16 16:20 98 Room Air 06/02/16 13:42 37.4 55 18 121/73 98 Room Air 06/02/16 13:30 37.4 55 18 121/73 98 Room Air Lab Results: Results Past 24 Hours Test 06/03/16 07:25 Range/Units Sodium Level 138 136-145 mmol/L Potassium Level 3.9 3.5-5.1 mmol/L Chloride Level 106 98-107 mmol/L Carbon Dioxide Level 22 21-32 mmol/L Anion Gap 10.0 3-11 mmol/L Blood Urea Nitrogen 22 7-18 mg/dl Creatinine 1.20 0.60-1.40 mg/dl Est Creatinine Clear Calc Drug Dose 76.2 ml/min Estimated GFR () 72.1 Estimated GFR (Non- 62.2 BUN/Creatinine Ratio 18.1 10-20 Random Glucose 103 70-99 mg/dl Calcium Level 8.3 8.5-10.1 mg/dl
[2016-06-03] MEDS ORDERED: LCTX PO (12:14)
[2016-06-03] MEDS ORDERED: FLM4 PO (12:14)
[2016-06-03] MEDS ORDERED: CPR500 PO (12:14)
[2016-06-03] MEDS ORDERED: PHEN-1043 PO (12:15)
--- NOTE | 2016-06-03 12:18 | Discharge Instructions ---
Discharge Instructions Admission Reason for Admission: Sepsis Discharge Discharge Diagnosis / Problem: Sepsis due to complicated UTI Discharge Goals Goal(s): Prevent Disease Progression Activity Recommendations Activity Limitations: resume your previous activity . Instructions / Follow-Up Instructions / Follow-Up Dr Santiago on 06/07/16 at 1:50PM.Please keep appointment with Urologist Current Hospital Diet Patient's current hospital diet: AHA Diet (Heart Healthy) Discharge Diet Recommended Diet: AHA Diet (Heart Healthy) Procedures Procedures Performed: cystoscopy; right ureteral stent placement [id number] Pending Studies Studies pending at discharge: no Laboratory Results Hemoglobin A1c Test 05/31/16 18:50 Range/Units Estimated Average Glucose 120 mg/dl Hemoglobin A1c 5.8 H 4.5-5.6 % Medical Emergencies . Who to Call and When: Medical Emergencies: If at any time you feel your situation is an emergency, please call 911 immediately. . Non-Emergent Contact Non-Emergency issues call your: Primary Care Provider . Past History Medical & Surgical History: (1) Ureterolithiasis (2) Hydronephrosis (3) Fever (4) Sepsis due to urinary tract infection (5) HOCM (hypertrophic obstructive cardiomyopathy) (6) Dyslipidemia (7) HTN (hypertension) (8) Gout (9) ICD (implantable cardioverter-defibrillator), dual, in situ . "Provider Documentation" section prepared by Lynn Andrade. VTE Core Measure Inpt VTE Proph given/why not?: Unfractionated heparin SQ
[2016-06-03 15:53] VITALS: BP 140/73; PULSE 65; TEMP 36.9; O2SAT 97
[2016-06-03] MEDS ORDERED: ULT50X PO (16:20)
--- NOTE | 2016-06-03 17:29 | Discharge Summary ---
Discharge Summary Admission Date: May 31, 2016 at 20:40 Discharge Date: Jun 03, 2016 Discharge Disposition: Home Principal Diagnosis: Sepsis due to complicated UTI secondary to Ureteric stone Secondary Diagnoses/Problems: Please see H&P Procedures: Cystoscopy and Right Ureteral stent placement Consultations: Urology Medication Reconciliation New Medications: Lactobacillus Acidophilus (Lactinex) Tab 2 TAB PO BID, #30 TAB Ciprofloxacin (Ciprofloxacin HCl) 500 Mg Tab 500 MG PO BID for 11 Days, #22 TAB Phenazopyridine HCl (Phenazopyridine HCl) 200 Mg Tab 200 MG PO TID PRN for Bladder pain for 2 Days, #6 TAB Tamsulosin HCl (Tamsulosin HCl) 0.4 Mg Cap 0.4 MG PO QAM for 30 Days, #30 CAP Tramadol HCl (Tramadol HCl) 50 Mg Tab 25 MG PO Q6H PRN for Pain for 10 Days, #30 TAB Continued Medications: Acetaminophen (Tylenol) 500 Mg Tab 1000 MG PO TID, TAB Allopurinol (Allopurinol) 300 Mg Tab 300 MG PO HS Aspirin (Aspirin) 325 Mg Ectab 325 MG PO BID for 45 Days, #90 Take to prevent blood clots. Ezetimibe (Zetia) 10 Mg Tab 10 MG PO HS, TAB Fish Oil (Robinson-3) 1 Ea Cap 2 TAB PO BID, CAP Lisinopril (Prinivil) 10 Mg Tab 10 MG PO QAM, TAB May start after the follow up with PCP if BP is still high Mometasone Furoate (Nasal) (Mometasone Furoate) 50 Mcg/Act Spr 2 SPRAYS JAJA QPM, #51 Niacin (Antihyperlipidemic) (Niacin Er) 750 Mg Tab 2 TABS PO QPM Verapamil Hcl (Calan Sr Ext Rel) 180 Mg Tab 180 MG PO HS, TAB [Iron ] () 1 TAB PO DAILY Admission Information HPI (per Admitting provider): 66 year old male who presents to the ER with fever, painful urination, and back pain. Patient was recently admitted to [facility] 05/04 for elective right TKA. Post operative course was uneventful. Patient reports he had swelling and pain to the right calf. He had an US that was negative for DVT. He reports Dr. Gupta drained fluid out of his calf and pain and swelling have been improving. Patient reports he started getting sick 4 days ago. He reports fever of as high as 103, chills, and body aches. He also developed frequent urination, dysuria, and foul smelling urine. He denies hematuria. He reports right sided back pain. He reports nausea and diarrhea. No vomiting. He denies BRBPR and dark tarry stools. He denies chest pain. He reports mild shortness of breath at rest and with exertion today. He denies lightheadedness, dizziness, or syncopal events. In the ER, patient's U/A appears infected. CT abd/pelvis shows 3 obstructing renal calculi on the right side. Creat is 1.7 (normal baseline). He is tachycardic and temp is 39.0. Trop is 0.096. He was given Dapto, Zosyn, IVF, and Tylenol. Past Medical/Surgical History Medical Problems: (1) Dyslipidemia Status: Chronic (2) GERD (gastroesophageal reflux disease) Status: Chronic (3) Gout Status: Chronic (4) HOCM (hypertrophic obstructive cardiomyopathy) Permanent Comment: echo 08/2015 - preserved LVEF Status: Chronic (5) HTN (hypertension) Status: Chronic (6) ICD (implantable cardioverter-defibrillator), dual, in situ Status: Chronic Surgical Problems: (1) History of arthroplasty of left knee Status: Chronic (2) History of arthroplasty of right knee Status: Chronic Family History FH: colon cancer FATHER Social History Smoking Status: Former Smoker Alcohol Use: occasionally Immunizations History of Influenza Vaccine: Yes Influenza Vaccine Date: Feb 19, 2016 History of Tetanus Vaccine?: Yes Tetanus Immunization Date: Jan 17, 2005 History of Pneumococcal: Yes Pneumococcal Date: Apr 29, 2015 History of Hepatitis B Vaccine: Yes Hepatitis Immunization Date: Apr 25, 1992 Multi-Drug Resistant Organisms History of MDRO: No Allergies Coded Allergies: Atenolol (Verified Adverse Reaction, Unknown, LIGHTHEADEDNESS, "FELT GOOFY ", 05/04/16) Home Medications Scheduled Acetaminophen (Tylenol), 1,000 MG PO TID Allopurinol (Allopurinol), 300 MG PO HS Aspirin (Aspirin), 325 MG PO BID Ezetimibe (Zetia), 10 MG PO HS Fish Oil (Robinson-3), 2 TAB PO BID Lisinopril (Prinivil), 10 MG PO QAM Mometasone Furoate (Nasal) (Mometasone Furoate), 2 SPRAYS JAJA QPM Niacin (Antihyperlipidemic) (Niacin Er), 2 TABS PO QPM Verapamil Hcl (Calan Sr Ext Rel), 180 MG PO HS [Iron ], 1 TAB PO DAILY Review of Systems 10 point review of systems was completed with the pertinent positives and negatives noted per the HPI Physical Ex - H&P Physical Exam Vital Signs Date Time Temp Pulse Resp B/P Pulse Ox O2 Delivery O2 Flow Rate FiO2 05/31/16 20:10 37.3 59 16 94/53 96 05/31/16 19:17 101 05/31/16 19:00 39.0 05/31/16 18:50 96 Nasal Cannula 4.0 05/31/16 18:50 96 Nasal Cannula 4.0 05/31/16 18:44 117 18 98 Nasal Cannula 4.0 General Appearance: no apparent distress Head: normocephalic Eyes: normal inspection ENT: hearing grossly normal Neck: supple, no JVD Respiratory/Chest: lungs clear, normal breath sounds, no respiratory distress Cardiovascular: regular rate, rhythm, normal peripheral pulses Abdomen/GI: normal bowel sounds, non tender, soft Genitourinary - Male: + pertinent finding (beyer in place) Extremities/Musculoskelatal: + inflammation (RLE) Neurologic/Psych: no motor/sensory deficits, alert, normal mood/affect, oriented x 3 Skin: normal color, + diaphoresis Diagnostics - H&P Diagnostics Laboratory Results Results Past 24 Hours Test 05/31/16 18:50 05/31/16 18:52 05/31/16 19:15 05/31/16 20:14 Range/Units White Blood Count 6.59 4.8-10.8 K/uL Red Blood Count 4.02 4.7-6.1 M/uL Hemoglobin 12.6 14.0-18.0 g/dL Hematocrit 35.7 42-52 % Mean Corpuscular Volume 88.8 80-100 fL Mean Corpuscular Hemoglobin 31.3 25-34 pg Mean Corpuscular Hemoglobin Concent 35.3 32-36 g/dl Platelet Count 179 130-400 K/uL Mean Platelet Volume 9.6 7.4-10.4 fL Neutrophils (%) (Auto) 86.1 % Lymphocytes (%) (Auto) 6.1 % Monocytes (%) (Auto) 7.1 % Eosinophils (%) (Auto) 0.0 % Basophils (%) (Auto) 0.2 % Neutrophils # (Auto) 5.68 1.4-6.5 K/uL Lymphocytes # (Auto) 0.40 1.2-3.4 K/uL Monocytes # (Auto) 0.47 0.11-0.59 K/uL Eosinophils # (Auto) 0.00 0-0.5 K/uL Basophils # (Auto) 0.01 0-0.2 K/uL RDW Standard Deviation 43.8 36.4-46.3 fL RDW Coefficient of Variation 13.4 11.5-14.5 % Immature Granulocyte % (Auto) 0.5 % Immature Granulocyte # (Auto) 0.03 0.00-0.02 K/uL Prothrombin Time 11.5 9.0-12.0 SECONDS Prothromb Time International Ratio 1.1 0.9-1.1 Activated Partial Thromboplast Time 35.9 21.0-31.0 SECONDS Partial Thromboplastin Ratio 1.4 Sodium Level 132 136-145 mmol/L Potassium Level 3.9 3.5-5.1 mmol/L Chloride Level 99 98-107 mmol/L Carbon Dioxide Level 21 21-32 mmol/L Anion Gap 12.0 3-11 mmol/L Blood Urea Nitrogen 38 7-18 mg/dl Creatinine 1.70 0.60-1.40 mg/dl Est Creatinine Clear Calc Drug Dose 55.5 ml/min Estimated GFR () 47.3 Estimated GFR (Non- 40.8 BUN/Creatinine Ratio 22.5 10-20 Random Glucose 173 70-99 mg/dl Calcium Level 8.7 8.5-10.1 mg/dl Magnesium Level 1.8 1.8-2.4 mg/dl Total Bilirubin 0.7 0.2-1 mg/dl Direct Bilirubin 0.3 0-0.2 mg/dl Aspartate Amino Transf (AST/SGOT) 57 15-37 U/L Alanine Aminotransferase (ALT/SGPT) 45 12-78 U/L Alkaline Phosphatase 71 45-117 U/L Troponin I 0.096 0-0.045 ng/ml Total Protein 6.9 6.4-8.2 gm/dl Albumin 2.9 3.4-5.0 gm/dl Lipase 84 73-393 U/L Thyroid Stimulating Hormone (TSH) 1.520 0.300-4.500 uIu/ml Bedside Lactic Acid Venous 1.28 0.90-1.70 mmol/L Urine Color YELLOW Urine Appearance TURBID CLEAR Urine pH 5.0 4.5-7.5 Urine Specific Marion 1.020 1.000-1.030 Urine Protein 3+ NEG Urine Glucose (UA) NEG NEG Urine Ketones 1+ NEG Urine Occult Blood 3+ NEG Urine Nitrite POS NEG Urine Bilirubin NEG NEG Urine Urobilinogen NEG NEG Urine Leukocyte Esterase LARGE NEG Urine WBC (Auto) >30 0-5 /hpf Urine RBC (Auto) 10-30 0-4 /hpf Urine Hyaline Casts (Auto) 10-30 0-5 /lpf Urine Epithelial Cells (Auto) >30 0-5 /lpf Urine Bacteria (Auto) 4+ NEG Urine Renal Epithelial Cells 10-20 0-5 /lpf Urine Pathogenic Casts 5-10 GRANULAR CASTS 0 /lpf Urine Yeast (Auto) NONE PRSENT Influenza Type A Antigen Neg for Influ A NEG Influenza Type B Antigen Neg for Influ B NEG Test 05/31/16 20:15 Range/Units Microbiology Results 05/31/16 Blood Culture, Received Pending 05/31/16 Blood Culture, Received Pending 05/31/16 Urine Culture, Received Pending Diagnostic Radiology CXR IMPRESSION: No active disease in the chest. CT ABD/PELVIS IMPRESSION: 1. Severe right-sided hydronephrosis and hydroureter secondary to 3 obstructing proximal right ureteral calculi, the largest of which measures 16 x 7 x 7 mm. These are located the L4-5 level. 2. No evidence of bowel obstruction. No evidence of free air Impression - H&P Impression Assessment and Plan SEPSIS DUE TO INFECTED RENAL CALCULI - admit to tele - presenting with tachycardia and fever; WBC and lactic acid WNL, BP stable - U/A infected, CT showing 3 obstructing right renal calculi with severe hydronephrosis - s/p Zosyn and Dapto in ED - will continue with Zosyn - IVF - urology consulted, ED in contact with Dr. Patterson MAHIN - likely combination of prerenal and obstructive - hold SUDHEER-i - IVF HX HOCM - echo 08/2015 - preserved EF - mild troponin elevation noted, likely due to acute illness - no reports of chest pain, continue to cycle cardiac enzymes HX NSVT S/P ICD - on verapamil HTN - holding lisinopril due to MAHIN GOUT - on allopurinol DVT PROPHYLAXIS - SCDs DISPO - In my clinical judgment this beneficiary meets acute admission criteria, established by [facility], that includes being hospitalized through two midnights. VTE Prophylaxis VTE Risk Assessment Done? Y/N: Yes Risk Level: Moderate Attending Note Assessment/Plan IM ATTENDING : Yessica seen and examined. Preceding documentation by ROSI Kunz reviewed. FINAL ASSESSMENT AND PLAN as follows : 1. Sepsis secondary to complicated urinary tract infection/obstructive uropathy. 2. Acute renal failure secondary to illness 3. hx NSVT sp ICD as per records 4. Hypertension, blood pressure on the lower side. 5. Obstructive sleep apnea on CPAP. 6. Hyperglycemia, rule out diabetes. 7. troponinemia likely secondary to tachycardia, sepsis, abnormal kidney function. doubt ACS PCU CS. Zosyn. Urology consult RE renal colic/obstructive uropathy. ER physician already in touch with Dr. Patterson. Possible procedure tonight. Monitor creatinine response to IV fluids. Hold ACEI until creatinine at baseline. Check hemoglobin A1c. ff trops DVT prophylaxis, SCDs for now RE possible procedure. Heparin subQ. if OK w/ Urology Full code. Physical Exam (per Admitting): General Appearance: no apparent distress Head: normocephalic Eyes: normal inspection ENT: hearing grossly normal Neck: supple, no JVD Respiratory/Chest: lungs clear, normal breath sounds, no respiratory distress Cardiovascular: regular rate, rhythm, normal peripheral pulses Abdomen/GI: normal bowel sounds, non tender, soft Genitourinary - Male: + pertinent finding (beyer in place) Extremities/Musculoskelatal: + inflammation (RLE) Neurologic/Psych: no motor/sensory deficits, alert, normal mood/affect, oriented x 3 Skin: normal color, + diaphoresis Hospital Course Sepsis secondary to complicated urinary tract infection/obstructive uropathy. S/P Cystoscopy and Right Ureteral stent placement Has been on IV Zosyn Urine culture-E Coli-pansensitive Blood Culture-negative Monitor in Tele Appreciate Urology Input:Recommend he remain inpatient until he has been afebrile for at least 24hrs and culture sensitivities return. Would then transition to 2 weeks of PO abx. Plan for outpatient ESWL vs URS once his infection has been adequately treated. D/C Zosyn and start Cipro Will continue Cipro for 14 days in total Acute renal failure secondary to sepsis Continue IV fluid Monitor Renal function-much improved Renal function normalized NSVT sp ICD as per records Troponinemia likely secondary to tachycardia, sepsis, abnormal kidney function. Doubt ACS No arrhythmia on Monitor No acute symptoms Hypertension, blood pressure on the lower side Hold ACEI until creatinine at baseline. Will restart ACEI on discharge No postural hypotension Obstructive sleep apnea on CPAP. No acute issue Hyperglycemia, rule out diabetes. Hb A1c-5.8 DVT prophylaxis, SCDs for now RE possible procedure. Start Heparin subQ Full code. Discharge home today Total time spent on discharge = 35 minutes This includes examination of the patient, discharge planning, medication reconciliation, and communication with other providers. Discharge Instructions Admission Reason for Admission: Sepsis Discharge Discharge Diagnosis / Problem: Sepsis due to complicated UTI Discharge Goals Goal(s): Prevent Disease Progression Activity Recommendations Activity Limitations: resume your previous activity . Instructions / Follow-Up Instructions / Follow-Up Dr Santiago on 06/07/16 at 1:50PM.Please keep appointment with Urologist Current Hospital Diet Patient's current hospital diet: AHA Diet (Heart Healthy) Discharge Diet Recommended Diet: AHA Diet (Heart Healthy) Procedures Procedures Performed: cystoscopy; right ureteral stent placement [id number] Pending Studies Studies pending at discharge: no Laboratory Results Hemoglobin A1c Test 05/31/16 18:50 Range/Units Estimated Average Glucose 120 mg/dl Hemoglobin A1c 5.8 H 4.5-5.6 % Medical Emergencies . Who to Call and When: Medical Emergencies: If at any time you feel your situation is an emergency, please call 911 immediately. . Non-Emergent Contact Non-Emergency issues call your: Primary Care Provider . Past History Medical & Surgical History: (1) Ureterolithiasis (2) Hydronephrosis (3) Fever (4) Sepsis due to urinary tract infection (5) HOCM (hypertrophic obstructive cardiomyopathy) (6) Dyslipidemia (7) HTN (hypertension) (8) Gout (9) ICD (implantable cardioverter-defibrillator), dual, in situ . "Provider Documentation" section prepared by Lynn Andrade. VTE Core Measure Inpt VTE Proph given/why not?: Unfractionated heparin SQ <Electronically signed by Lynn Andrade M.D.> Additional Copies To Joni Santiago M.D. (MEDICAL)
[2016-06-04] MEDS ORDERED: TAMSULOSIN HCL 0.4 MG CAP PO SCH (08:00)
[2016-06-14] MEDS ORDERED: TRAM-10 PO (11:30)
[2016-06-14] MEDS ORDERED: PHEN-876 PO (11:30)
[2016-06-14] MEDS ORDERED: TAMS0.4C38 PO (11:30)
[2016-06-14] MEDS ORDERED: PROB1TAB16 PO (11:30)
[2016-06-18] MEDS ORDERED: HYDR-5688 PO (07:17)
[2016-07-12] MEDS ORDERED: CIPR-255 PO (13:24)
[2016-07-12] MEDS ORDERED: PHEN-876 PO (13:24)
[2016-07-12] MEDS ORDERED: HYDR-5688 PO (13:24)
== END 2016-06-03 16:45 | disposition home or self-care (01) | DRG 872 ==
LOC: ENRESERVTM → ENRESERVDT → EDBD 18:26 → C.EDC 18:28 → C.2T 20:40 → C.4E 06-02 14:01
PROVIDERS: ADMIT Internal Medicine; ATTEND Internal Medicine
PROC: 0T768DZ Dilation of Right Ureter with Intraluminal Device, Via Natural or Artificial Opening Endoscopic (ICD-10-PCS; principal; 2016-05-31 20:57)
DX: A41.9 Sepsis, unspecified organism (principal); N17.9 Acute kidney failure, unspecified; I42.1 Obstructive hypertrophic cardiomyopathy; N39.0 Urinary tract infection, site not specified; N13.2 Hydronephrosis with renal and ureteral calculous obstruction; M54.9 Dorsalgia, unspecified; K21.9 Gastro-esophageal reflux disease without esophagitis; M10.9 Gout, unspecified; I10 Essential (primary) hypertension; Z96.653 Presence of artificial knee joint, bilateral; G47.33 Obstructive sleep apnea (adult) (pediatric); Z87.891 Personal history of nicotine dependence; R00.0 Tachycardia, unspecified; R65.20 Severe sepsis without septic shock

== ENCOUNTER → 2016-06-09 | Outpatient (CLI) | payer OTHER ==
[~2016-06-09] MED LIST changes: +ACET-1256 PO; +ASPI81TA28 PO; +CIPR-255 PO; +CPR500 PO; +DOCU100C PO; +FLM4 PO; +HYDR-5688 PO; +IRON PO; +LCTX PO; +LISI-729 PO; -MOME50SP5; +MOME6000 NAE; -OXYC-57 PO; +PHEN-1043 PO; +PHEN-876 PO; +PROB1TAB16 PO; +TAMS0.4C38 PO; +TRAM-10 PO; +ULT50X PO
== END | disposition home or self-care (01) ==
LOC: C.LABSPEC 17:38
PROVIDERS: ATTEND Nurse Practitioner Adult Health
DX: N20.1 Calculus of ureter (principal)

== ENCOUNTER → 2016-06-14 | Outpatient (CLI) | payer OTHER | END | disposition home or self-care (01) | LOC: C.LABBC 09:19 | PROVIDERS: ATTEND Nurse Practitioner Adult Health | DX: N20.0 Calculus of kidney (principal) ==

== ENCOUNTER → 2016-06-17 | Outpatient (CLI) | payer OTHER ==
[~2016-06-17] MED LIST changes: -ASPEC325 PO; -CPR500 PO; -FLM4 PO; -IRON PO; -LCTX PO; -LISI10TA PO; -PHEN-1043 PO; -ULT50X PO
--- NOTE | 2016-06-17 15:49 | DIAGNOSTIC IMAGING REPORT ---
KUB HISTORY: N20.1 Ureteral stone RAD COMPARISON: KUB 06/01/2016. FINDINGS: The bowel gas pattern is unremarkable. There are no dilated loops of small bowel to suggest an obstruction. There is a 5 mm stone within the lower pole of the right kidney. No left renal calculi. A right ureteral stent is unchanged in position. There is again noted a 2.9 cm column of stones within the proximal to mid right ureter at the L4 level. These are not significantly changed. No bladder calculi identified. Pacemaker wire is noted. No pneumoperitoneum or pneumatosis. IMPRESSION: 1. No change in the right ureteral Steinstr[place]. 2. Right-sided nephrolithiasis. 3. The right ureteral stent is unchanged in position. Electronically signed by: Jaime Hernandez M.D. 06/17/2016 3:48 PM Dictated Date/Time: 06/17/2016 3:46 PM
== END | disposition home or self-care (01) ==
LOC: C.RAD1850 15:21
PROVIDERS: ATTEND Nurse Practitioner Adult Health
DX: N20.2 Calculus of kidney with calculus of ureter (principal)

== ENCOUNTER → 2016-06-18 | Day surgery (SDC) | payer OTHER ==
[2016-06-14 11:31] VITALS: Ht 175.3 cm; Wt 113.6 kg
[~2016-06-18] VITALS: Ht 175.3 cm; Wt 113.6 kg
[~2016-06-18] MED LIST changes: +ATROPINE SULFATE 0.1 MG/ML 5ML SYR IV PRN; +CIPROFLOXACIN 400MG / D5W IV SCH; +DEXAMETHASONE SOD INJ 4 MG/ML VIAL ONE; +EpHEDrine SULFATE INJ 50 MG/ML AMP IV PRN; +FENTANYL CITRATE INJ 50 MCG/1 ML 2 ML VIAL IV PRN; +FENTANYL CITRATE INJ 50 MCG/1 ML 2 ML VIAL ONE; +LACTATED RINGER'S 1000ML 1,000 ML IV SCH; +LIDOCAINE HCL 2% 2 ML VIAL (20MG/ML) ONE; +MIDAZOLAM HCL 1 MG/ML 2ML VIAL ONE; +ONDANSETRON INJ 2 MG/ML 2 ML VIAL ONE; +OXYCODONE/ACETAMINOPHEN 5-325 TAB PO PRN; +PROPOFOL IV EMULSION 10 MG/ML 20 ML VIAL IV ONE; +SODIUM CHLORIDE 0.9% 1000ML 1,000 ML IV SCH; +TAMSULOSIN HCL 0.4 MG CAP PO SCH
--- NOTE | 2016-06-18 07:34 | Discharge Instructions-SurgCtr ---
Discharge Instructions Visit Reason for Visit: Stones Discharge Discharge Diagnosis / Problem: treat kidney stones Discharge Goals Goal(s): Decrease discomfort, Improve function, Increase independence, Improve disease control Medications Stopped Medications Name(s): Pt. stopped Fish Oil x 10 days and ASA x 5 days. Did not take his a.m. meds. Activity Recommendations Activity Limitations: resume your previous activity Lifting Limitations: none Exercise/Sports Limitations: as tolerated May Resume Sexual Activity: when tolerated Shower/Bathe: no limitations Driving or Machine Use: no limitations (as long as you are off of pain medications) Anesthesia . Post Anesthesia Instructions: If you have had General Anesthesia or IV Sedation: * Do not drive today. * Resume driving when surgeon permits. * Do not make important decisions or sign legal documents today. * Call surgeon for: 1. Temperature elevations greater than 101 degrees F. 2. Uncontrollable pain. 3. Excessive bleeding. 4. Persistent nausea and vomiting. 5. Medication intolerance (nausea, vomiting or rash). * For nausea and vomiting use only clear liquids such as: tea, soda, bouillon until nausea subsides, then gradually increase diet as tolerated. * If you have any concerns or questions, call your surgeon's office. If physician is unavailable and it is an emergency, call 911 or go to the nearest emergency room. . Diet Recommendations Home Diet: no limitations Pending Studies Studies pending at discharge: no Medical Emergencies . Who to Call and When: Medical Emergencies: If at any time you feel your situation is an emergency, please call 911 immediately. . Non-Emergent Contact Non-Emergency issues call your: Urologist Call Non-Emergent contact if: you have a fever, temperature is above 101.5, your pain is not controlled, your pain is worsening . . "Provider Documentation" section prepared by Maurice Cruz. [place] Drug Monitoring Program Search Results: patient reviewed within database, no issues identified
--- NOTE | 2016-06-18 07:59 | [facility] Post Operative Brief Note ---
Immediate Operative Summary Operative Date Jun 18, 2016. Pre-Operative Diagnosis Right Ureteral Stone Post-Operative Diagnosis same Procedure(s) Performed Right Extracorporeal Shock Wave Lithotripsy Surgeon Dr. Betty Patterson Belt Picker Surgeon(s) 0 Estimated Blood Loss 0 Findings Right ureteral stone adjacent to an indwelling stent - appeared to fragment fairly well. Specimens 0 Drains none Anesthesia gen Complication(s) None Disposition Recovery Room / PACU (stable)
[2016-06-18 09:01] VITALS: TEMP 36.6
[2016-06-18 09:27] VITALS: BP 128/79; PULSE 67; O2SAT 95
--- NOTE | 2016-06-18 09:49 | Anesthesia Progress Nt - [facility] ---
Anesthesia Post Op Note Date & Time Jun 18, 2016 at 09:49 Vital Signs Pain Intensity: 0 Vital Signs Past 12 Hours Date Time Temp Pulse Resp B/P Pulse Ox O2 Delivery O2 Flow Rate FiO2 06/18/16 09:27 67 16 128/79 95 Room Air 06/18/16 09:01 36.6 68 16 126/81 94 Room Air 06/18/16 08:50 67 15 95 06/18/16 08:50 67 15 06/18/16 08:50 67 15 95 06/18/16 08:50 67 15 06/18/16 08:49 114/75 06/18/16 08:49 114/75 06/18/16 08:45 70 12 94 06/18/16 08:45 70 12 94 06/18/16 08:45 68 12 06/18/16 08:45 68 12 06/18/16 08:44 125/80 06/18/16 08:41 68 16 95 06/18/16 08:41 65 16 06/18/16 08:39 117/75 06/18/16 08:36 74 20 95 06/18/16 08:36 74 20 06/18/16 08:34 110/76 06/18/16 08:31 74 10 06/18/16 08:31 72 10 92 06/18/16 08:30 36.8 72 16 125/80 94 Mask 0 06/18/16 08:29 112/73 06/18/16 08:26 74 14 90 06/18/16 08:26 67 14 06/18/16 08:25 85 13 91 06/18/16 08:25 84 13 06/18/16 08:24 120/81 06/18/16 08:20 89 17 95 06/18/16 08:20 90 17 06/18/16 08:19 103/80 06/18/16 08:15 89 9 97 06/18/16 08:15 90 9 06/18/16 08:14 124/76 06/18/16 08:10 89 14 97 06/18/16 08:10 89 14 06/18/16 08:09 114/78 06/18/16 08:05 36.8 90 16 126/73 95 Mask 8 06/18/16 08:05 126/73 06/18/16 06:33 36.4 87 16 135/71 95 Room Air Notes Mental Status: alert / awake / arousable, participated in evaluation Pt Amnestic to Procedure: Yes Nausea / Vomiting: adequately controlled Pain: adequately controlled Airway Patency, RR, SpO2: stable & adequate BP & HR: stable & adequate Hydration State: stable & adequate Anesthetic Complications: no major complications apparent
--- NOTE | 2016-06-20 13:32 | OPERATIVE REPORT ---
DATE OF OPERATION: 06/18/2016 PREOPERATIVE DIAGNOSIS: Right ureteral stone. POSTOPERATIVE DIAGNOSIS: Right ureteral stone. PROCEDURE PERFORMED: Extracorporeal shockwave lithotripsy. ANESTHESIA: General. ESTIMATED BLOOD LOSS: 0. URINE OUTPUT: Not recorded. SPECIMENS: There are no specimens. DRAINS: There are no drains. DESCRIPTION OF THE PROCEDURE: Sandip Garcia was identified in the preoperative holding area. Appropriate informed consents reviewed and completed and the patient was transported to the operating suite. Upon arrival, he received appropriate preoperative antibiotics in the form of ciprofloxacin. We confirmed that [employer] rep was present to deactivate his defibrillator pacemaker prior to the procedure. He set the pace to 90 beats per minute and confirmed appropriate function of the pacemaker prior to the procedure and he additionally confirm this at the conclusion of the case. After administering general anesthesia, the stone was localized under fluoroscopy and shocks were initiated with a total of 3000 shocks delivered to the ureteral stone with good fragmentation. This was quite a large stone and it is unclear if it is 100% fragmented yet or not. At the conclusion of the case, the patient was extubated. His pacemaker was confirmed to be functioning and he was returned to the PACU in stable condition. I attest to the content of the Intraoperative Record and any orders documented therein. Any exceptio ns are noted below.
== END | disposition home or self-care (01) ==
LOC: X.SURG 06:08
PROVIDERS: ATTEND Urology
DX: N20.1 Calculus of ureter (principal); I10 Essential (primary) hypertension; M19.90 Unspecified osteoarthritis, unspecified site; E78.5 Hyperlipidemia, unspecified; M10.9 Gout, unspecified; E78.00 Pure hypercholesterolemia, unspecified; G47.30 Sleep apnea, unspecified; Z95.0 Presence of cardiac pacemaker

== ENCOUNTER → 2016-06-30 | Outpatient (CLI) | payer OTHER ==
[~2016-06-30] MED LIST changes: -ATROPINE SULFATE 0.1 MG/ML 5ML SYR IV PRN; -CIPROFLOXACIN 400MG / D5W IV SCH; -DEXAMETHASONE SOD INJ 4 MG/ML VIAL ONE; -EpHEDrine SULFATE INJ 50 MG/ML AMP IV PRN; -FENTANYL CITRATE INJ 50 MCG/1 ML 2 ML VIAL IV PRN; -FENTANYL CITRATE INJ 50 MCG/1 ML 2 ML VIAL ONE; -LACTATED RINGER'S 1000ML 1,000 ML IV SCH; -LIDOCAINE HCL 2% 2 ML VIAL (20MG/ML) ONE; -MIDAZOLAM HCL 1 MG/ML 2ML VIAL ONE; -ONDANSETRON INJ 2 MG/ML 2 ML VIAL ONE; -OXYCODONE/ACETAMINOPHEN 5-325 TAB PO PRN; -PROPOFOL IV EMULSION 10 MG/ML 20 ML VIAL IV ONE; -SODIUM CHLORIDE 0.9% 1000ML 1,000 ML IV SCH; -TAMSULOSIN HCL 0.4 MG CAP PO SCH
--- NOTE | 2016-06-30 10:11 | DIAGNOSTIC IMAGING REPORT ---
KUB CLINICAL HISTORY: N20.1 Ureteral [id number] nephrocalcinosis COMPARISON STUDY: 06/17/2016 FINDINGS: The right ureteral stent is unchanged in position. The, stones within the mid right ureter is similar in location. Calcification lower pole right kidney is unchanged relative dimensions appear somewhat diminished. No significant left renal calcifications. IMPRESSION: Mid right ureteral calcifications unchanged. Right ureteral stent unchanged in position. Electronically signed by: Iván Pemberton M.D. 06/30/2016 10:09 AM Dictated Date/Time: 06/30/2016 10:08 AM
== END | disposition home or self-care (01) ==
LOC: C.RAD1850 09:54
PROVIDERS: ATTEND Nurse Practitioner Adult Health
DX: N20.2 Calculus of kidney with calculus of ureter (principal)

== ENCOUNTER → 2016-06-30 | Outpatient (CLI) | payer OTHER | END | disposition home or self-care (01) | LOC: C.LABSPEC 17:33 | PROVIDERS: ATTEND Urology | DX: N20.0 Calculus of kidney (principal) ==

== ENCOUNTER 2016-07-12 09:03 | Day surgery (SDC) | payer OTHER ==
[2016-07-01 10:12] VITALS: BMI 37.0
[~2016-07-12] VITALS: Ht 175.3 cm; Wt 113.6 kg
[~2016-07-12 09:03] MED LIST changes: -ACET-1256 PO; -ASPI81TA28 PO; -CIPR-255 PO; +CIPROFLOXACIN / D5W 400 MG IV SCH; +CIPROFLOXACIN 400MG / D5W IV SCH; -DOCU100C PO; -HYDR-5688 PO; +LACTATED RINGER'S 1000ML 1,000 ML IV SCH; -LISI-729 PO; -PHEN-876 PO; -PROB1TAB16 PO; -TRAM-10 PO
[2016-07-12 09:25] VITALS: BP 153/89; PULSE 92; TEMP 36.6; O2SAT 95; Ht 175.3 cm; Wt 113.6 kg
[2016-07-12] MEDS ORDERED: FENTANYL CITRATE INJ 50 MCG/1 ML 2 ML VIAL IV PRN (11:00)
[2016-07-12] MEDS ORDERED: LABETALOL HCL IV 5 MG/ML 20ML IV PRN (11:00)
[2016-07-12] MEDS ORDERED: HYDROmorphone INJ 1 MG/ML SYR IV PRN (11:00)
[2016-07-12] MEDS ORDERED: EpHEDrine SULFATE INJ 50 MG/ML AMP IV PRN (11:00)
[2016-07-12] MEDS ORDERED: MEPERIDINE HCL 25 MG/ML CARP IV PRN (11:00)
[2016-07-12] MEDS ORDERED: ATROPINE SULFATE 0.1 MG/ML 5ML SYR IV PRN (11:00)
[2016-07-12] MEDS ORDERED: ONDANSETRON INJ 2 MG/ML 2 ML VIAL IV PRN (11:00)
[2016-07-12] MEDS ORDERED: ONDANSETRON INJ 2 MG/ML 2 ML VIAL ONE (11:08)
[2016-07-12] MEDS ORDERED: LIDOCAINE HCL 2% 2 ML VIAL (20MG/ML) ONE (11:08)
[2016-07-12] MEDS ORDERED: PROPOFOL IV EMULSION 10 MG/ML 20 ML VIAL IV ONE (11:08)
[2016-07-12] MEDS ORDERED: DEXAMETHASONE SOD INJ 4 MG/ML VIAL ONE (11:08)
[2016-07-12] MEDS ORDERED: MIDAZOLAM HCL 1 MG/ML 2ML VIAL ONE (11:08)
[2016-07-12] MEDS ORDERED: FENTANYL CITRATE INJ 50 MCG/1 ML 2 ML VIAL ONE ×2 (11:09→12:48)
--- NOTE | 2016-07-12 13:22 | [facility] Post Operative Brief Note ---
Immediate Operative Summary Operative Date Jul 12, 2016. Pre-Operative Diagnosis Right ureteral stone Post-Operative Diagnosis Right Ureteral Stone Procedure(s) Performed Cystoscopy, Right Ureteroscopy, Laser Lithotripsy, Right Stent Exchange ([id number]) Surgeon Dr. Patterson Gunner'S Mate G Surgeon(s) none Estimated Blood Loss 5cc Findings Right ureteral stone - impacted in the ureter. Large stone Specimens A: ureteral stones Drains [id number] Anesthesia Gen Complication(s) None Disposition Recovery Room / PACU (stable)
[2016-07-12] MEDS ORDERED: PHEN-876 PO (13:24)
[2016-07-12] MEDS ORDERED: HYDR-5688 PO (13:24)
[2016-07-12] MEDS ORDERED: CIPR-255 PO (13:24)
[2016-07-12] MEDS ORDERED: SODIUM CHLORIDE 0.9% 1000ML 1,000 ML IV SCH (13:27)
[2016-07-12] MEDS ORDERED: PHENAZOPYRIDINE HCL 200 MG TAB PO STA (13:27)
--- NOTE | 2016-07-12 13:27 | Discharge Instructions ---
Discharge Instructions Date of Service Jul 12, 2016. Admission Reason for Admission: Stones Discharge Discharge Diagnosis / Problem: Treat stones Discharge Goals Goal(s): Decrease discomfort, Improve function, Increase independence, Improve disease control Activity Recommendations Activity Limitations: resume your previous activity Lifting Limitations: none Exercise/Sports Limitations: none May Resume Sexual Activity: when tolerated Shower/Bathe: no limitations Driving or Machine Use: no limitations . Instructions / Follow-Up Instructions / Follow-Up Please keep your previously scheduled follow up appointment for stent pull. Discharge Diet Recommended Diet: Regular Diet Procedures Procedures Performed: Cystoscopy, Right Ureteroscopy, Laser Lithotripsy, Right Stent Exchange ([id number]) Pending Studies Studies pending at discharge: no Laboratory Results Hemoglobin A1c Test 05/31/16 18:50 Range/Units Estimated Average Glucose 120 mg/dl Hemoglobin A1c 5.8 H 4.5-5.6 % Medical Emergencies . Who to Call and When: Medical Emergencies: If at any time you feel your situation is an emergency, please call 911 immediately. . Non-Emergent Contact Non-Emergency issues call your: Urologist Call Non-Emergent contact if: you have a fever, temperature is above 101.5, your pain is not controlled, your pain is worsening . . "Provider Documentation" section prepared by Maurice Cruz. VTE Core Measure Inpt VTE Proph given/why not?: Treatment not indicated [place] Drug Monitoring Program Search Results: patient reviewed within database, no issues identified
[2016-07-12] MEDS ORDERED: PHENAZOPYRIDINE HCL 200 MG TAB PO PRN (13:30)
[2016-07-12] MEDS ORDERED: OXYCODONE/ACETAMINOPHEN 5-325 TAB PO PRN ×2 (13:30)
--- NOTE | 2016-07-12 13:59 | Anesthesiology Progress Note ---
Anesthesia Post Op Note Date & Time Jul 12, 2016 at 13:59 Vital Signs Pain Intensity: 0 Vital Signs Past 12 Hours Date Time Temp Pulse Resp B/P Pulse Ox O2 Delivery O2 Flow Rate FiO2 07/12/16 13:55 64 16 135/75 92 Room Air 07/12/16 13:45 65 16 128/82 94 Room Air 0 07/12/16 13:35 70 16 130/88 98 Mask 10 07/12/16 13:27 36.4 72 16 137/75 98 Mask 10 07/12/16 09:25 36.6 92 18 153/89 95 Room Air Notes Mental Status: alert / awake / arousable, participated in evaluation Pt Amnestic to Procedure: Yes Nausea / Vomiting: adequately controlled Pain: adequately controlled Airway Patency, RR, SpO2: stable & adequate BP & HR: stable & adequate Hydration State: stable & adequate Anesthetic Complications: no major complications apparent
[2016-07-12 14:05] VITALS: BP 128/75; PULSE 66; TEMP 36.4; O2SAT 96
[2016-07-12 14:35] VITALS: BP 134/82; PULSE 67; O2SAT 99
[2016-07-12 15:00] VITALS: BP 133/81; PULSE 64; TEMP 36.5; O2SAT 95
--- NOTE | 2016-07-12 15:21 | OPERATIVE REPORT ---
DATE OF OPERATION: 07/12/2016 PREOPERATIVE DIAGNOSIS: Right ureteral calculus. POSTOPERATIVE DIAGNOSIS: Right ureteral calculus. PROCEDURES PERFORMED: Cystoscopy, right ureteral stent exchange, right ureteroscopy, and laser lithotripsy. ANESTHESIA: General. ESTIMATED BLOOD LOSS: 5 mL. URINE OUTPUT: Not recorded. SPECIMENS: There were no specimens. COMPLICATIONS: There were no complications. DESCRIPTION OF THE PROCEDURE: Sandip Garcia was identified in the preoperative holding area. Appropriate informed consents were reviewed and completed and the patient was transported to the operating suite. Upon arrival, he received appropriate preoperative antibiotics in the form of ciprofloxacin. Adequate general anesthesia was achieved and the patient was placed in dorsolithotomy position, where he was sterilely prepped and draped in standard fashion. I began the case by passing a 22-Eritrean cystoscope and 30 degree lens. Inspection of the urethra revealed no evidence of stricture disease with a relatively small prostate. Inspection of the bladder revealed no mucosal disease. A right ureteral stent was easily seen protruding from the right orifice. The distal aspect of the stent was grasped with a flexible grasper and withdrawn into the meatus under fluoroscopy. The lumen was cannulated with a sensor wire, which was advanced to the kidney without difficulty under fluoroscopy. I then withdrew the stent entirely. Of note, his stone was located just above the level of the blood vessels and I elected attempt to pass a semirigid ureteroscope at that time. I was able to guide this into the distal ureter and advance it to its maximal extent, at which point, I could just barely see the beginning of the stone, but was very limited in terms of mobility. I elected at that time to withdraw the scope and placed a second wire through the lumen of the working channel of the scope and then passed a flexible ureteroscope to the level of the stone. At that time, I noted that the stone was significantly impacted in the medial aspect of the lower ureter; however, I was able to visualize a significant portion of the stone and I passed a 400 micron laser fiber and began laser lithotripsy. I was able sequentially freed the stone from that site of impaction and break it up into pieces small enough for spontaneous passage. I worked my way from the distal aspect to the proximal aspect of the stone and then proceeded to scope the remaining portion of the ureter up to the level of the UPJ. I treated all stones over 2-3 mm in size and fragmented all pieces maximally. I carefully inspected the site of impaction and noted no large retained fragments. There appeared to be healthy and intact ureter throughout. I performed a careful exit ureteroscopy treating several small stones that had migrated to the distal ureter. I placed a new 6-Eritrean 22-32 cm double-J ureteral stent over the existing safety wire seeing a good curl in the kidney as well as the bladder. Bladder was subsequently decompressed and the case was concluded. The patient tolerated the procedure well, was extubated and taken to the PACU in stable condition. I attest to the content of the Intraoperative Record and any orders documented therein. Any exceptions are noted below. MTDD
== END 2016-07-12 15:03 | disposition home or self-care (01) ==
LOC: C.ACU 09:03
PROVIDERS: ATTEND Urology
DX: N20.1 Calculus of ureter (principal); E78.5 Hyperlipidemia, unspecified; E78.00 Pure hypercholesterolemia, unspecified; I10 Essential (primary) hypertension; Z95.0 Presence of cardiac pacemaker; G47.30 Sleep apnea, unspecified; Z79.899 Other long term (current) drug therapy

== ENCOUNTER → 2016-07-19 | Outpatient (CLI) | payer OTHER ==
[~2016-07-19] MED LIST changes: +ASPI81TA28 PO; +CIPR-255 PO; -CIPROFLOXACIN / D5W 400 MG IV SCH; -CIPROFLOXACIN 400MG / D5W IV SCH; +DOCU100C PO; +HYDR-5688 PO; -LACTATED RINGER'S 1000ML 1,000 ML IV SCH; +LISI-729 PO; +PHEN-876 PO
--- NOTE | 2016-07-19 10:59 | DIAGNOSTIC IMAGING REPORT ---
KUB CLINICAL HISTORY: Nephrolithiasis. COMPARISON STUDY: CT of the abdomen and pelvis May 31, 2016, KUB June 30, 2016 and fluoroscopic images from stent placement July 12, 2016. FINDINGS: A right ureteral stent is unchanged in position. Several calculi or fragments within the lower pole of the right kidney measure up to 6 mm. There has been distal migration of the right ureteral calculus/calculi fragments since exam of June 30, 2016. These are now located within the distal right ureter. In aggregate, these measure 2.2 x 0.6 cm. These appear decreased in size since prior exam. IMPRESSION: 1. Distal migration of the right ureteral calculi/fragments since KUB of June 30, 2016. These are now located within the distal right ureter. Interval decrease in calculus/fragment burden since prior exam. 2. Unchanged position of right ureteral stent. 3. Right-sided nephrolithiasis. Electronically signed by: Abhishek Marie M.D. 07/19/2016 10:58 AM Dictated Date/Time: 07/19/2016 10:54 AM
== END | disposition home or self-care (01) ==
LOC: C.RAD1850 10:04
PROVIDERS: ATTEND Urology
DX: N20.2 Calculus of kidney with calculus of ureter (principal)

== ENCOUNTER 2017-01-22 15:47 | Emergency (ER) | payer OTHER ==
[~2017-01-22] VITALS: Ht 177.8 cm; Wt 114.0 kg
[~2017-01-22 15:47] MED LIST changes: -ASPI81TA28 PO; -DOCU100C PO; -HYDR-5688 PO; -LISI-729 PO; -PHEN-876 PO
[2017-01-22 15:51] VITALS: TEMP 36.9; Ht 177.8 cm; Wt 114.0 kg
[2017-01-22 16:21] LABS: BASO % 0.2 %; BASO ABS # 0.01 K/uL (0-0.2); COMPLETE YES; EOS % 2.2 %; HEMATOCRIT 45.1 % (42-52); IG% 0.4 %; LYMPH % 25.2 %; LYMPH ABS # 1.36 K/uL (1.2-3.4); MEAN CELL VOLUME 90.9 fL (80-100); MEAN CORPUSCULAR HEMOGLOBIN 31.9 pg (25-34); MEAN PLATELET VOLUME 9.7 fL (7.4-10.4); MONO % 6.5 %; NEUT % 65.5 %; PLATELET COUNT 181 K/uL (130-400); RED BLOOD COUNT 4.96 M/uL (4.7-6.1); WHITE BLOOD COUNT 5.39 K/uL (4.8-10.8)
--- NOTE | 2017-01-22 16:22 | DIAGNOSTIC IMAGING REPORT ---
ORBITS/SELLA/TEMP WITHOUT CLINICAL HISTORY: 66 years-old Male presenting with eye trauma . TECHNIQUE: Multidetector CT of the orbits was performed without the use of intravenous contrast. IV contrast: None. A dose lowering technique was used consistent with the principles of ALARA (as low as reasonably achievable). COMPARISON: None. CT DOSE (mGy.cm): The estimated cumulative dose is 515.26 mGy.cm. 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 Extensive right periorbital soft tissue swelling. Heterogeneous density within the right globe consistent with hematoma. Infiltration posterior to the globe likely also hematoma. Optic nerves intact. Swelling and infiltration around the right lateral rectus muscle. Gas noted along the right nares consistent with laceration. Minimal gas also noted along the medial aspect of the right orbit anteriorly. No subjacent osseous injury. Paranasal sinuses and mastoid air cells clear. Limited intracranial evaluation within normal limits. Upper cervical spine normal. IMPRESSION: Findings consistent with hematoma in the right globe with periorbital and minimal retrobulbar hematoma. No subjacent osseous injury. Subcutaneous and minimal right intraorbital gas secondary to laceration. Electronically signed by: Will Granado M.D. 01/22/2017 4:20 PM Dictated Date/Time: 01/22/2017 4:16 PM
[2017-01-22] MEDS ORDERED: PIPERACILLIN/TAZOBACTAM 4.5 GM/100ML D5W IV STA (16:25)
[2017-01-22 16:29] LABS: INR 0.9 (0.9-1.1)
[2017-01-22] MEDS ORDERED: LISI-729 PO (16:30)
[2017-01-22] MEDS ORDERED: ASPI81TA28 PO (16:32)
[2017-01-22] MEDS ORDERED: DOCU100C PO (16:34)
[2017-01-22 16:38] LABS: BUN/CREATININE RATIO 16.2 (10-20); CALCIUM 9.9 mg/dl (8.5-10.1); CREATININE 1.1 mg/dl (0.60-1.40)
[2017-01-22] MEDS ORDERED: VANCOMYCIN INJ 2,000 MG in SODIUM CHLORIDE 0.9% 500ML 500 ML IV STA (17:37)
[2017-01-22] MEDS ORDERED: LEVAQUIN 500MG / 100ML D5W IV ONE (17:45)
[2017-01-22 18:16] VITALS: BP 160/88; PULSE 71; O2SAT 97
--- NOTE | 2017-01-22 20:23 | EMERGENCY ROOM VISIT NOTE ---
History Report prepared by Krissyibmiesha: Hannah Black Under the Supervision of: Dr. Ronald Forman D.O. First contact with patient: 15:58 Chief Complaint: EYE ASSESSMENT Stated Complaint: BLEEDING R EYE History of Present Illness The patient is a 66 year old male who presents to the Emergency Room with complaints of needing an eye assessment. He is accompanied by his . 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 He was just about finished, and when he walked away, he tripped and fell, hitting the right side of his eye on the saw. He cannot see anything out of his right eye and he states there is still a contact lens in the eye. He rates his current discomfort as a 3/10. He also complains of a headache. He does take a daily Aspirin and has a pacemaker. The patient denies any left eye pain, loss of vision, headache, trouble eating or swallowing, chest pain or shortness of breath. 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 A total of 10 systems reviewed and were otherwise negative. Past Medical & Surgical Medical Problems: (1) Dyslipidemia (2) GERD (gastroesophageal reflux disease) (3) Gout (4) HOCM (hypertrophic obstructive cardiomyopathy) (5) HTN (hypertension) (6) ICD (implantable cardioverter-defibrillator), dual, in situ (7) Sepsis Surgical Problems: (1) History of arthroplasty of left knee (2) History of arthroplasty of right knee Family History FH: colon cancer FATHER Social History Smoking Status: Never Smoker Alcohol Use: occasionally Drug Use: none Marital Status: Housing Status: lives with significant other Occupation Status: retired Current/Historical Medications Scheduled Allopurinol (Allopurinol), 300 MG PO HS Aspirin (Aspirin Ec), 81 MG PO DAILY Ezetimibe (Zetia), 10 MG PO HS Fish Oil ([place]-3), 2 TAB PO BID Lisinopril (Zestril), 5 MG PO QAM Mometasone Furoate (Nasal) (Mometasone Furoate), 2 SPRAYS JAJA QPM Niacin (Antihyperlipidemic) (Niacin Er), 2 TABS PO QPM Verapamil Hcl (Calan Sr Ext Rel), 180 MG PO HS Scheduled PRN Docusate Sodium (Stool Softener), 100 MG PO DAILY PRN for Constipation Allergies Coded Allergies: Atenolol (Verified Adverse Reaction, Unknown, LIGHTHEADEDNESS, "FELT GOOFY ", 01/22/17) Physical Exam Vital Signs Date Time Temp Pulse Resp B/P (MAP) Pulse Ox O2 Delivery O2 Flow Rate FiO2 01/22/17 18:16 71 17 160/88 97 01/22/17 17:50 71 17 160/88 97 Room Air 01/22/17 17:12 71 16 166/95 98 Room Air 01/22/17 16:27 76 16 164/87 96 Room Air 01/22/17 15:51 36.9 83 20 163/86 92 Room Air Physical Exam GENERAL: Patient is alert, sitting up in bed, disheveled, bleeding from around the right eye EYE EXAM: Left eye PERRL, patient is able to open/almost completely close right eyelid, laceration through right upper lid, does not appear to go down to eye, funduscopic exam appears to have a tear in the globe, along edge of iris at 11 o 'clock to 2 o'clock, large amount of cell, corneal edema and bleeding from 11 to 2:00. OROPHARYNX: no exudate, no erythema, lips, buccal mucosa, and tongue normal and mucous membranes are moist NECK: supple, no nuchal rigidity, no adenopathy, non-tender LUNGS: Clear to auscultation. Normal chest wall mechanics HEART: no murmurs, S1 normal and S2 normal ABDOMEN: abdomen soft, non-tender, normo-active bowel sounds, no masses, no rebound or guarding. UPPER EXTREMITIES: upper extremities are grossly normal. LOWER EXTREMITIES: No pitting edema. NEURO EXAM: Normal sensorium. Medical Decision & Procedures ER Provider Diagnostic Interpretation: Radiology results as stated below per my review and the radiologist's interpretation: ORBITS/SELLA/TEMP WITHOUT CLINICAL HISTORY: 66 years-old Male presenting with eye trauma . TECHNIQUE: Multidetector CT of the orbits was performed without the use of intravenous contrast. IV contrast: None. A dose lowering technique was used consistent with the principles of ALARA (as low as reasonably achievable). COMPARISON: None. CT DOSE (mGy.cm): The estimated cumulative dose is 515.26 mGy.cm. FINDINGS: Monogram Technician topogram: Unremarkable. Extensive right periorbital soft tissue swelling. Heterogeneous density within the right globe consistent with hematoma. Infiltration posterior to the globe likely also hematoma. Optic nerves intact. Swelling and infiltration around the right lateral rectus muscle. Gas noted along the right nares consistent with laceration. Minimal gas also noted along the medial aspect of the right orbit anteriorly. No subjacent osseous injury. Paranasal sinuses and mastoid air cells clear. Limited intracranial evaluation within normal limits. Upper cervical spine normal. IMPRESSION: Findings consistent with hematoma in the right globe with periorbital and minimal retrobulbar hematoma. No subjacent osseous injury. Subcutaneous and minimal right intraorbital gas secondary to laceration. Electronically signed by: Will Granado M.D. 01/22/2017 4:20 PM Laboratory Results 01/22/17 16:00 Red Blood Count 4.96, Mean Corpuscular Volume 90.9, Mean Corpuscular Hemoglobin 31.9, Mean Corpuscular Hemoglobin Concent 35.0, Mean Platelet Volume 9.7, Neutrophils (%) (Auto) 65.5, Lymphocytes (%) (Auto) 25.2, Monocytes (%) (Auto) 6.5, Eosinophils (%) (Auto) 2.2, Basophils (%) (Auto) 0.2, Neutrophils # (Auto) 3.53, Lymphocytes # (Auto) 1.36, Monocytes # (Auto) 0.35, Eosinophils # (Auto) 0.12, Basophils # (Auto) 0.01 01/22/17 16:00 Test 01/22/17 16:00 White Blood Count 5.39 K/uL (4.8-10.8) Red Blood Count 4.96 M/uL (4.7-6.1) Hemoglobin 15.8 g/dL (14.0-18.0) Hematocrit 45.1 % (42-52) Mean Corpuscular Volume 90.9 fL (80-100) Mean Corpuscular Hemoglobin 31.9 pg (25-34) Mean Corpuscular Hemoglobin Concent 35.0 g/dl (32-36) Platelet Count 181 K/uL (130-400) Mean Platelet Volume 9.7 fL (7.4-10.4) Neutrophils (%) (Auto) 65.5 % Lymphocytes (%) (Auto) 25.2 % Monocytes (%) (Auto) 6.5 % Eosinophils (%) (Auto) 2.2 % Basophils (%) (Auto) 0.2 % Neutrophils # (Auto) 3.53 K/uL (1.4-6.5) Lymphocytes # (Auto) 1.36 K/uL (1.2-3.4) Monocytes # (Auto) 0.35 K/uL (0.11-0.59) Eosinophils # (Auto) 0.12 K/uL (0-0.5) Basophils # (Auto) 0.01 K/uL (0-0.2) RDW Standard Deviation 44.1 fL (36.4-46.3) RDW Coefficient of Variation 13.5 % (11.5-14.5) Immature Granulocyte % (Auto) 0.4 % Immature Granulocyte # (Auto) 0.02 K/uL (0.00-0.02) Prothrombin Time 10.0 SECONDS (9.0-12.0) Prothromb Time International Ratio 0.9 (0.9-1.1) Anion Gap 8.0 mmol/L (3-11) Est Creatinine Clear Calc Drug Dose 82.4 ml/min Estimated GFR () 80.1 Estimated GFR (Non- 69.1 BUN/Creatinine Ratio 16.2 (10-20) Calcium Level 9.9 mg/dl (8.5-10.1) Laboratory results per my review. Medications Administered Medications (Trade) Dose Ordered Sig/[facility] Route Start Time Stop Time Status Last Admin Dose Admin Piperacillin Sod/ Tazobactam Sod (Zosyn Iv) 4.5 gm NOW STAT IV 01/22/17 16:25 01/22/17 16:26 DC 01/22/17 16:39 4.5 GM ED Course ED COURSE: Vital signs were reviewed and showed the patient is hypertensive. The patients medical record was reviewed The above diagnostic studies were performed and reviewed. ED treatments and interventions as stated above. 1558: The patient was evaluated in room B1. A complete history and physical examination was performed. 1615: I reevaluated the patient. He is resting comfortably. 1625: Zosyn 4.5 gm IV. 1628: I discussed the patients case with Dr. Arellano, Ophthalmology. He agrees with antibiotics and recommends transfer to an acute care facility. 1625: Teresa, the ED [facility] has called the transfer center at [facility] to try and get things moving. 1636: I discussed the patients case with Dr. Almendarez, [facility] Emergency Department. He has accepted the patient as a transfer and recommends I contact Ophthalmology. 1640: [facility] Ophthalmology has been paged. 1645: I discussed the patients case with Dr. Sullivan, [facility] Ophthalmology. The patient has been accepted as a transfer and will be sent to [place] via air transport. 1719: [facility] is coming in 30 minutes. 1752: [facility] is here for the patient. 1755: Upon reevaluation, the patient is resting comfortably and ready for transport. I discussed my findings with the patient and he and his understand and agree with the treatment plan. Based on the patients age, coexisting illnesses, exam and lab findings the decision to treat as an inpatient at [facility] was made. The patient remained stable while under my care. The patient will be evaluated for further management. Medical Decision The differential diagnoses considered include open globe, traumatic iris and retroocular hematoma Patient is a 66-year-old male who presents to ER following pulling on a bow saw. On initial evaluation IV was established. He appeared to have an open globe rupture. Patient was sent emergently to CT. CT showed a small retrobulbar hematoma with a large intraocular hematoma. He does not take any blood thinners. Slit lamp confirmed open globe from 11 to 2 o'clock. Slit lamp also confirmed a large amount of cell. Patient was updated at bedside. IV was established and was given IV Zofran, Levaquin and vancomycin. Tetanus was recently updated. Loss of vision came immediately following the fall. I do not believe that is secondary to the small retrobulbar hematoma as there is no proptosis. Discussed this with ophthalmology. Discussed with ophthalmology at [facility] who recommended transfer. [facility] with [facility] [place], ophthalmology and ER. Patient was accepted in transfer. Patient was flown via [facility] as we had no local ambulances secondary to home football game as this is a time sensitive issue. Medication Reconcilliation Current Medication List: was personally reviewed by me Blood Pressure Screening Patient's blood pressure: Elevated blood pressure Blood pressure disposition: Elevated BP felt to be situational Consults Time Called: 1626 Consulting Physician: Dr. Arellano, Ophthalmology Returned Call: [phone] I discussed the patients case with Dr. Arellano, Ophthalmology. He agrees with antibiotics and recommends transfer to an acute care facility. Additional Consults: Time Called: 1630 Consulted Physician: Dr. Sullivan, [facility] Ophthalmology Returned Call: [phone] Additional Comments: I discussed the patients case with Dr. Sullivan, [facility] Ophthalmology. The patient has been accepted as a transfer and will be sent to [place] via air transport. Impression Primary Impression: Injury of globe of right eye Additional Impressions: retrobulbar hematoma Eyelid laceration Critical Care I have personally spent 35 minutes of critical care time in the direct management of this patient. This includes bedside care, interpretation of diagnostic studies, and testing, discussion with consultants, patient, and family members, and other required patient management activities. This 35 minutes is in excess of all separately billable procedures. Scribe Attestation The scribe's documentation has been prepared under my direction and personally reviewed by me in its entirety. I confirm that the note above accurately reflects all work, treatment, procedures, and medical decision making performed by me. Departure Information Dispostion Transfer Acute Care Facility (The patient has been accepted as a transfer to [facility] in [place]) Referrals Joni Santiago M.D. (MEDICAL) (PCP) Patient Instructions My [facility] Problem Qualifiers Primary Impression: Injury of globe of right eye Encounter type: initial encounter Qualified Codes: S05.91XA - Unspecified injury of right eye and orbit, initial encounter
== END 2017-01-22 18:17 | disposition short-term general hospital (02) ==
LOC: C.EDB 15:49
DX: S05.91XA Unspecified injury of right eye and orbit, initial encounter (principal); S05.10XA Contusion of eyeball and orbital tissues, unspecified eye, initial encounter; W29.3XXA Contact with powered garden and outdoor hand tools and machinery, initial encounter; E78.5 Hyperlipidemia, unspecified; K21.9 Gastro-esophageal reflux disease without esophagitis; M10.9 Gout, unspecified; I10 Essential (primary) hypertension; I42.1 Obstructive hypertrophic cardiomyopathy; Z79.82 Long term (current) use of aspirin

== ENCOUNTER → 2017-04-26 | Outpatient (CLI) | payer OTHER ==
[~2017-04-26] MED LIST changes: +ASPI81TA28 PO; -CIPR-255 PO; +DOCU100C PO; +LISI-729 PO; -TAMS0.4C38 PO
--- NOTE | 2017-04-26 08:56 | DIAGNOSTIC IMAGING REPORT ---
KUB CLINICAL HISTORY: 67 years-old Male presenting with N20.0 [id number]. TECHNIQUE: Single supine view of the abdomen was obtained. COMPARISON: 07/19/2016. FINDINGS: Nonobstructive bowel gas pattern. No gross pneumoperitoneum. Evaluation of the renal shadows degraded by bowel gas and stool. Allowing for this, the right ureteral stent has been removed. Unchanged appearance of the calculus at the lower pole the right kidney. No calcification along the course of the right ureter. No radiographically apparent left renal calculi. Degenerative changes of the spine. IMPRESSION: 1. Status post removal of the right ureteral stent. Stable position of right renal calculus. No ureteral calculi. Electronically signed by: Will Granado M.D. 04/26/2017 8:55 AM Dictated Date/Time: 04/26/2017 8:52 AM
== END | disposition home or self-care (01) ==
LOC: C.RAD1850 08:38
PROVIDERS: ATTEND Urology
DX: N20.0 Calculus of kidney (principal); Z98.890 Other specified postprocedural states